=== PATIENT | male | born 1950 | race Caucasian/White ===

== ENCOUNTER 2017-02-12 05:20 | Emergency (ER) | payer SELFPAY ==
[2017-02-12 05:26] VITALS: BP 140/80; BMI 26.1
--- NOTE | 2017-02-12 05:45 | DR.GENAD ---
HPI - PCP Primary Care Physician: nfd - Complaint/Symptoms Chief Complaint Doctors Comments: Patient admits to nausea and back pain for a few days. Denies fever or vomiting. Back pain is chronic due to herniated disc Chief Complaint:: pt c/o nausea and back pain coughing sore throat - Source History Provided: Patient - Mode of Arrival Mode of Arrival: Ambulatory - Timing Onset of Chief Complaint: 02/11/17 PMH - PMH Past Medical History: Yes Past Medical History: Anxiety, Depression, Hypertension Past Surgical History: Yes Past Surgical History Comment: hemmoroids - Family History History of Family Medical Conditions: No - Social History Does any household member use tobacco: No Do you use any recreational Drugs:: No Lives With: Family Lives Where: Home - infectious screening In the last 2 months have you had wt loss of >10#?: NO Have you had fever, night sweats or hemotysis?: No Have you traveled outside the country in the last 6 months?: No Isolation: Standard ROS - Review of Systems Eyes: No Symptoms Reported ENTM: No Symptoms Reported Respiratoy: No Symptoms Reported Cardiovascular: No Symptoms Reported Gastrointestinal/Abdominal: No Symptoms Reported Genitourinary: No Symptoms Reported Neurological: No Symptoms Reported Musculoskeletal: Back Pain Integumentary: No Symptoms Reported Hematologic/Lymphatic: No Symptoms Reported Endocrine: No Symptoms Reported Psychiatric: No Symptoms Reported All Other Systems: Reviewed and Negative PE - Vital Signs Vitals: Temperature 98.3 F Pulse Rate 90 Respiratory Rate 18 Blood Pressure 140/80 O2 Sat by Pulse Oximetry 99 - General Limitations: No Limitations General Appearance: Alert, In No Apparent Distress - Head Head Exam: Normal Inspection, Atraumatic - Eyes Eye exam: Normal Appearance, PERRL, EOMI - ENT ENT Exam: Normal Exam External Ear Exam: Normal External Inspection TM/Canal Exam: Bilateral Normal Nose Exam: Normal Nose Exam Mouth Exam: Normal Inspection Throat Exam: Normal Inspection - Neck Neck Exam: Normal Inspection, Full ROM - Chest Chest Inspection: Normal Inspection - Respiratory Respiratory Exam: Normal Lung Sounds Bilat Respiratory Exam: Bilateral Clear to Auscultation - Cardiovascular Cardiovascular Exam: Regular Rate - Abdominal Exam Abdominal Exam: Normal Inspection Abdominal Tenderness: RUQ - Extremities Extremities Exam: Normal Inspection, Full ROM - Back Back Exam: Normal Inspection - Neurologic Neurological Exam: Alert, Oriented X3, CN II-XII Intact - Psychiatric Psychiatric Exam: Normal Affect, Normal Mood ROR - Labs Reviewed Laboratory Results Reviewed?: Yes Result Diagrams: 02/12/17 05:57 02/12/17 05:57 Laboratory: WBC 5.1 X10^3/uL (3.6-10.0) 02/12/17 05:57 RBC 4.83 X10^6/uL (4.7-6.0) 02/12/17 05:57 Hgb 14.0 g/dL (13.5-18.0) 02/12/17 05:57 Hct 40.9 % (42.0-54.0) L 02/12/17 05:57 MCV 84.7 fL (80.0-100.0) 02/12/17 05:57 MCH 28.9 pg (27.0-34.0) 02/12/17 05:57 MCHC 34.1 g/dL (33.0-35.0) 02/12/17 05:57 RDW 13.6 % (11.6-16.5) 02/12/17 05:57 Plt Count 219 X10^3/uL (150.0-450.0) 02/12/17 05:57 MPV 8.1 fL (7.4-11.0) 02/12/17 05:57 Neut % 65.4 % (42.0-75.0) 02/12/17 05:57 Lymph % 21.3 % (21.0-51.0) 02/12/17 05:57 [place] % 10.3 % (0.0-13.0) 02/12/17 05:57 Eos % 2.3 % (0.9-2.9) 02/12/17 05:57 Baso % 0.7 % (0.2-1.0) 02/12/17 05:57 Neut # 3.4 x10^3/uL (2.2-4.8) 02/12/17 05:57 Lymph # 1.1 X10^3/uL (1.3-2.9) L 02/12/17 05:57 [place] # 0.5 x10^3/uL (0.3-0.8) 02/12/17 05:57 Eos # 0.1 x10^3/uL (0.0-0.2) 02/12/17 05:57 Baso # 0.0 X10^3/uL (0.0-0.1) 02/12/17 05:57 Absolute Nucleated RBC 0.0 /100WBC 02/12/17 05:57 Sodium 144 mmol/L (136-145) 02/12/17 05:57 Corrected Sodium TNP 02/12/17 05:57 Potassium 4.0 mmol/L (3.5-5.1) 02/12/17 05:57 Chloride 108 mmol/L (98-107) H 02/12/17 05:57 Carbon Dioxide 27.2 mmol/L (21-32) 02/12/17 05:57 BUN 17 mg/dL (7-18) 02/12/17 05:57 Creatinine 1.09 mg/dL (0.70-1.30) 02/12/17 05:57 Est GFR (MDRD) Af Amer > 60 (>60) 02/12/17 05:57 Est GFR (MDRD) Non-Af > 60 (>60) 02/12/17 05:57 Glucose 105 mg/dL (65-99) H 02/12/17 05:57 Calcium 8.5 mg/dL (8.5-10.1) 02/12/17 05:57 Corrected Calcium TNP 02/12/17 05:57 Total Bilirubin 0.50 mg/dL (0.2-1.0) 02/12/17 05:57 AST 16 Units/L (15-37) 02/12/17 05:57 ALT 20 Units/L (12-78) 02/12/17 05:57 Alkaline Phosphatase 83 Units/L (46-116) 02/12/17 05:57 C-Reactive Protein 1.30 mg/L (0-3.0) 02/12/17 05:57 Total Protein 6.7 g/dL (6.4-8.2) 02/12/17 05:57 Albumin 3.5 g/dL (3.4-5.0) 02/12/17 05:57 Globulin 3.2 g/dL (2.5-4.5) 02/12/17 05:57 Albumin/Globulin Ratio 1.1 Ratio (1.1-2.1) 02/12/17 05:57 - XRAY XRAY Interpreted by: Radiologist (AAA: Chest: Normal chest; Abd:Abdomen in the supine and upright position demonstrate a nonobstructive bowel gas pattern with no radiographic evidence of free intraperitoneal air. There is gas and stool throughout the imaged colon.) - Diagnosis Discharge Problem: Nausea - Discharge Plan Condition: Stable - Follow ups/Referrals Follow ups/Referrals: NFD,None [Primary Care Provider] - 3 days - Instructions
[2017-02-12] MEDS ORDERED: TORADOL 30 MG VIAL IVP ONE (05:49)
[2017-02-12] MEDS ORDERED: TORADOL 30 MG VIAL IM ONE (05:50)
[2017-02-12] MEDS ORDERED: NS 1000 ML 1,000 ML ONE (05:51)
[2017-02-12] MEDS ORDERED: PHENERGAN INJ 25 MG IV ONE (05:53)
[2017-02-12] MEDS ORDERED: TORADOL 30 MG VIAL ONE (06:00)
[2017-02-12] MEDS ORDERED: NS 1000 ML 1,000 ML IV SCH (06:00)
[2017-02-12] MEDS ORDERED: NS 25 ML IV 25 ML IV ONE (06:00)
[2017-02-12] MEDS ORDERED: PHENERGAN INJ 25 MG ONE (06:00)
[2017-02-12 06:12] LABS: BASOPHILS % (AUTO) 0.7 % (0.2-1.0); EOSINOPHILS # (AUTO) 0.1 x10^3/uL (0.0-0.2); EOSINOPHILS % (AUTO) 2.3 % (0.9-2.9); HEMATOCRIT 40.9 % (42.0-54.0); LYMPHOCYTES # (AUTO) 1.1 X10^3/uL (1.3-2.9); LYMPHOCYTES % (AUTO) 21.3 % (21.0-51.0); MEAN CORPUSCULAR HEMOGLOBIN 28.9 pg (27.0-34.0); MEAN CORPUSCULAR HGB CONC 34.1 g/dL (33.0-35.0); MEAN CORPUSCULAR VOLUME 84.7 fL (80.0-100.0); MEAN PLATELET VOLUME 8.1 fL (7.4-11.0); MONOCYTES # (AUTO) 0.5 x10^3/uL (0.3-0.8); MONOCYTES % (AUTO) 10.3 % (0.0-13.0); NEUTROPHILS # (AUTO) 3.4 x10^3/uL (2.2-4.8); NEUTROPHILS % (AUTO) 65.4 % (42.0-75.0); PLATELET COUNT 219 X10^3/uL (150.0-450.0); RED BLOOD COUNT 4.83 X10^6/uL (4.7-6.0); RED CELL DISTRIBUTION WIDTH 13.6 % (11.6-16.5); WHITE BLOOD COUNT 5.1 X10^3/uL (3.6-10.0)
[2017-02-12 06:16] LABS: ALANINE AMINOTRANSFERASE 20 Units/L (12-78); ALBUMIN 3.5 g/dL (3.4-5.0); ALKALINE PHOSPHATASE 83 Units/L (46-116); ASPARTATE AMINO TRANSFERASE 16 Units/L (15-37); BLOOD UREA NITROGEN 17 mg/dL (7-18); CALCIUM 8.5 mg/dL (8.5-10.1); CARBON DIOXIDE 27.2 mmol/L (21-32); CHLORIDE 108 mmol/L (98-107); CREATININE 1.09 mg/dL (0.70-1.30); GLUCOSE 105 mg/dL (65-99); SODIUM 144 mmol/L (136-145); TOTAL PROTEIN 6.7 g/dL (6.4-8.2); eGFR BLACK RACES > 60 (>60); eGFR NON BLACK RACES > 60 (>60)
--- NOTE | 2017-02-12 06:54 | RAD ---
EXAM: Chest X-ray INDICATION: Nausea COMPARISION: Prior exam from September 02, 2012 TECHNIQUE: AP, single view FINDINGS: The lungs are clear in the lung volumes are within normal limits. No pleural effusion or pneumothora x. The cardiac silhouette and mediastinum are normal. The regional skeleton is intact. IMPRESSION: Normal Chest X-Ray Reported By:
[2017-02-12] MEDS ORDERED: CITROMA ONE (08:00)
[2017-02-12] MEDS ORDERED: CITROMA PO ONE (08:05)
== END 2017-02-12 08:05 | disposition home or self-care (01) ==
LOC: ER 05:20
DX: R11.0 Nausea (principal)
CPT/HCPCS: 36415; 74022; 80053; 85025; 86140; 96365; 96367; 96372; 96374; 96375; 99283; A4222; J1885; J2550

== ENCOUNTER 2024-01-23 08:26 | Inpatient (IN) ==
--- NOTE | 2024-01-23 08:38 | DR.GENAD ---
HPI Time Seen Time Seen by Provider: 01/23/24 08:37 Complaint/Symptoms Chief Complaint Doctors Comments: 73-year-old male presents for evaluation. Patient was seen and treated last week in the ER for bronchitis. Has had persistent cough, cough productive of some yellowish sputum. Patient having wo rsening shortness of breath over the past few days. Does have a history of COPD, ex-smoker for several decades. Has been wearing O2 at home, pulse ox low without it. Running low-grade fever, no chills. Denies chest pain, nausea, vomiting or bowel/bladder issues. Dyspnea worsens with exertion, improves with rest. No swelling of the legs. Does have a history of heart valve issue. Nurses notes reviewed Nurses Notes Review: Yes Source History Provided: Patient Mode of Arrival Mode of Arrival: Ambulatory PMH PMH Past Medical History: Anxiety, COPD, Depression and Hypertension Past Surgical History: Yes Surgical History: Other Family History Family Medical History: Diabetes Mellitus, Cancer and Hypertension Social History Does patient currently use any type of tobacco product: No Do you use any recreational Drugs:: No ROS Review of Systems Constitutional: Fever (Low-grade) Eyes: No Symptoms Reported ENTM: No Symptoms Reported Respiratoy: Productive Cough and Short of Breath Cardiovascular: No Symptoms Reported Gastrointestinal/Abdominal: No Symptoms Reported Genitourinary: No Symptoms Reported Neurological: No Symptoms Reported Musculoskeletal: No Symptoms Reported Integumentary: No Symptoms Reported Hematologic/Lymphatic: No Symptoms Reported Psychiatric: No Symptoms Reported All Other Systems: Reviewed and Negative PE Vital Signs Vitals: Vital Signs Temperature 98.2 F Pulse Rate 81 Pulse Rate 86 Pulse Rate 85 Pulse Rate 104 Respiratory Rate 20 Blood Pressure 128/74 O2 Sat by Pulse Oximetry 97 O2 Sat by Pulse Oximetry 98 O2 Sat by Pulse Oximetry 98 O2 Sat by Pulse Oximetry 97 General General Appearance: Alert and In No Apparent Distress Eyes Eye exam: PERRL and EOMI ENT ENT Exam: Normal Oropharynx and Mucous Membranes Moist Neck Neck Exam: Normal Inspection Chest Chest Inspection: Normal Inspection Respiratory Respiratory Exam: Other (+ bibasilar rales); negative Respiratory Distress Cardiovascular Cardiovascular Exam: Regular Rate, Normal Rhythm and Systolic Murmur (2/6 systolic ejection murmur left side chest) Abdominal Exam Abdominal Exam: Soft and Tenderness (Epigastric region) Extremities Extremities Exam: Normal Inspection; negative Edema Neurologic Neurological Exam: Alert, Oriented X3 and CN II-XII Intact; negative Motor Sensory Deficit Skin Skin Exam: Warm and Dry COURSE Treatment Treatment: 73-year-old male, history of COPD, with worsening shortness of breath. Workup initiated. 1015 -chest x-ray shows bilateral pneumonia to be present. Labs are overall acceptable. Initially given dose of IV Levaquin, but then realized patient just finished course of Levaquin.. Patient given IV Rocephin. Discussed with Dr. Wright, will admit for pneumonia, hypoxia. Will treat with IV Rocephin, DuoNeb treatments, IV steroids and O2 supplementation. ROR Labs Reviewed 01/23/24 09:10 01/23/24 09:10 Laboratory: WBC 8.9 X10^3/uL (3.6-10.0) 01/23/24 09:10 RBC 4.49 X10^6/uL (4.7-6.0) L 01/23/24 09:10 Hgb 13.2 g/dL (13.5-18.0) L 01/23/24 09:10 Hct 38.8 % (42.0-54.0) L 01/23/24 09:10 MCV 86.5 fL (80.0-100.0) 01/23/24 09:10 MCH 29.4 pg (27.0-34.0) 01/23/24 09:10 MCHC 34.0 g/dL (33.0-35.0) 01/23/24 09:10 RDW 13.9 % (11.6-16.5) 01/23/24 09:10 Plt Count 303 X10^3/uL (150.0-450.0) 01/23/24 09:10 MPV 7.5 fL (7.4-11.0) 01/23/24 09:10 Neut % (Auto) 78.2 % (42.0-75.0) H 01/23/24 09:10 Lymph % (Auto) 9.8 % (21.0-51.0) L 01/23/24 09:10 [place] % (Auto) 9.3 % (0.0-13.0) 01/23/24 09:10 Eos % (Auto) 2.0 % (0.9-2.9) 01/23/24 09:10 Baso % (Auto) 0.7 % (0.2-1.0) 01/23/24 09:10 Neut # (Auto) 7.0 x10^3/uL (2.2-4.8) H 01/23/24 09:10 Lymph # (Auto) 0.9 X10^3/uL (1.3-2.9) L 01/23/24 09:10 [place] # (Auto) 0.8 x10^3/uL (0.3-0.8) 01/23/24 09:10 Eos # (Auto) 0.2 x10^3/uL (0.0-0.2) 01/23/24 09:10 Baso # (Auto) 0.1 X10^3/uL (0.0-0.1) 01/23/24 09:10 Absolute Nucleated RBC 0.0 /100WBC 01/23/24 09:10 Sodium 140 mmol/L (136-145) 01/23/24 09:10 Corrected Sodium TNP 01/23/24 09:10 Potassium 4.4 mmol/L (3.5-5.1) 01/23/24 09:10 Chloride 105 mmol/L (98-107) 01/23/24 09:10 Carbon Dioxide 26.3 mmol/L (21-32) 01/23/24 09:10 BUN 15 mg/dL (7-18) 01/23/24 09:10 Creatinine 1.00 mg/dL (0.70-1.30) 01/23/24 09:10 Est GFR (MDRD) Af Amer > 60 (>60) 01/23/24 09:10 Est GFR (MDRD) Non-Af > 60 (>60) 01/23/24 09:10 Glucose 97 mg/dL (65-99) 01/23/24 09:10 Lactic Acid 1.0 mmol/L (0.4-2.0) 01/23/24 09:10 Calcium 8.5 mg/dL (8.5-10.1) 01/23/24 09:10 Corrected Calcium 9.5 mg/dL (8.5-10.1) 01/23/24 09:10 Total Bilirubin 0.70 mg/dL (0.2-1.0) 01/23/24 09:10 AST 16 Units/L (15-37) 01/23/24 09:10 ALT 15 Units/L (12-78) 01/23/24 09:10 Alkaline Phosphatase 102 Units/L (46-116) 01/23/24 09:10 B-Natriuretic Peptide 89.7 pg/mL (0-79) H 01/23/24 09:10 Total Protein 6.4 g/dL (6.4-8.2) 01/23/24 09:10 Albumin 2.7 g/dL (3.4-5.0) L 01/23/24 09:10 Globulin 3.7 g/dL (2.5-4.5) 01/23/24 09:10 Albumin/Globulin Ratio 0.7 Ratio (1.1-2.1) L 01/23/24 09:10 Lipase 39 Units/L (16-77) 01/23/24 09:10 EKG Rate: 82 [place]: Normal Rhythm: NSR ST: Nonsp Opioid Opioid Risk Tool Age (Pedro box if 16-45): No History of Preadolescent Sexual Abuse: No Total: 0 Total Score Risk Category: Low Risk Copyright: [place] predicting aberrant behaviors Discharge Plan Diagnosis Discharge Problem: Pneumonia, Hypoxia Discharge Plan Patient Disposition: 09 ADMITTED INPATIENT Condition: Stable Prescriptions: No Action albuterol sulfate 90 mcg/actuation HFA aerosol inhaler 2 puff inhalation Q6H MDD 8 PRN (Reason: shortness of breath or wheezing) 30 Days Qty: 6.7 0RF aspirin 81 mg tablet,delayed release (DR/EC) 81 mg PO QDAY MDD 1 30 Days Qty: 30 0RF famotidine 20 mg tablet 20 mg PO QDAY MDD 1 30 Days Qty: 30 0RF finasteride 5 mg tablet 5 mg PO QDAY MDD 1 30 Days Qty: 30 0RF ipratropium-albuterol 20-100 mcg/actuation mist 1 puff inhalation Q6H MDD 4 PRN (Reason: copd) 30 Days Qty: 4 0RF lisinopril 10 mg tablet 10 mg PO QDAY MDD 1 30 Days Qty: 30 0RF loratadine 10 mg tablet 10 mg PO QDAY MDD 1 30 Days Qty: 30 0RF magnesium citrate 125 mg capsule 125 mg PO QDAY MDD 1 30 Days Qty: 30 0RF metoprolol tartrate 25 mg tablet 25 mg PO QDAY MDD 1/4 tab daily 30 Days Qty: 30 0RF omeprazole 20 mg tablet,delayed release (DR/EC) 20 mg PO QDAY MDD 1 30 Days Qty: 30 0RF atorvastatin 40 mg tablet 40 mg PO QHS MDD 1/2 90 Days Qty: 90 0RF cyanocobalamin (vitamin B-12) 1,000 mcg tablet 500 mcg PO QDAY MDD 1 90 Days Qty: 45 0RF furosemide 20 mg tablet 20 mg PO QAM MDD 1 Qty: 90 0RF methocarbamol 500 mg tablet 500 mg PO TID MDD 3 90 Days Qty: 270 0RF cyanocobalamin (vitamin B-12) 1,000 mcg/mL solution 1,000 mcg IM QMONTH Qty: 1 0RF guaifenesin 1,200 mg tablet extended release 12hr 1,200 mg PO Q12H MDD 2 30 Days Qty: 60 0RF sodium chloride 0.9 % solution for nebulization 3 ml inhalation Q8H MDD 3 30 Days Qty: 90 2RF cholecalciferol (vitamin D3) 1,250 mcg (50,000 unit) capsule 1,250 mcg PO HS MDD 1 weekly Health Concerns: Post Hospitalization: new medications and changes needed to prevent readmission or further decline. Pt educated and given instructions on all concerns. Plan of Treatment: Continue with present treatment and follow up plan. Pt is to keep follow up appointment as instructed and take medications as ordered. Orders to Discharge Patient Discharge Orders: Transfer (Routine); Ordered 01/23/24 Ordered By: Karlos Pressley Follow ups/Referrals Follow ups/Referrals: SELINA GUZMÁN [Primary Care Provider] - 3 days
[2024-01-23] MEDS: NS 500 ML IV 500 ML IV ONE (09:02)
--- NOTE | 2024-01-23 09:08 | EKG ---
Test Reason : dyspnea Blood Pressure : */* mmHG Vent. Rate : 82 BPM Atrial Rate : 82 BPM P-R Int : 188 ms QRS Dur : 120 ms QT Int : 380 ms P-R-T Axes : 50 -12 22 degrees QTc Int : 443 ms Normal sinus rhythm Cannot rule out Anterior infarct , age undetermined Abnormal ECG When compared with ECG of 18-FEB-2023 03:21, premature ventricular complexes are no longer present Confirmed by Maksim Guerra ([id number]) on 01/23/2024 9:30:37 AM Referred By: Confirmed By: Maksim Guerra
[2024-01-23 09:32] LABS: BLOOD UREA NITROGEN 15 mg/dL (7-18); CALCIUM 8.5 mg/dL (8.5-10.1); CARBON DIOXIDE 26.3 mmol/L (21-32); CHLORIDE 105 mmol/L (98-107); GLUCOSE 97 mg/dL (65-99); POTASSIUM 4.4 mmol/L (3.5-5.1); SODIUM 140 mmol/L (136-145); eGFR NON BLACK RACES > 60 (>60)
[2024-01-23 09:35] LABS: BASOPHILS # (AUTO) 0.1 X10^3/uL (0.0-0.1); BASOPHILS % (AUTO) 0.7 % (0.2-1.0); EOSINOPHILS # (AUTO) 0.2 x10^3/uL (0.0-0.2); HEMATOCRIT 38.8 % (42.0-54.0); HEMOGLOBIN 13.2 g/dL (13.5-18.0); LYMPHOCYTES # (AUTO) 0.9 X10^3/uL (1.3-2.9); LYMPHOCYTES % (AUTO) 9.8 % (21.0-51.0); MEAN CORPUSCULAR HEMOGLOBIN 29.4 pg (27.0-34.0); MEAN CORPUSCULAR VOLUME 86.5 fL (80.0-100.0); MEAN PLATELET VOLUME 7.5 fL (7.4-11.0); MONOCYTES # (AUTO) 0.8 x10^3/uL (0.3-0.8); MONOCYTES % (AUTO) 9.3 % (0.0-13.0); NEUTROPHILS % (AUTO) 78.2 % (42.0-75.0); PLATELET COUNT 303 X10^3/uL (150.0-450.0); RED BLOOD COUNT 4.49 X10^6/uL (4.7-6.0); RED CELL DISTRIBUTION WIDTH 13.9 % (11.6-16.5); WHITE BLOOD COUNT 8.9 X10^3/uL (3.6-10.0)
[2024-01-23] MEDS: LEVAQUIN PREMIX IV 750 MG 750 MG/150 ML BAG IV SCH (09:39)
[2024-01-23 09:44] LABS: ALANINE AMINOTRANSFERASE 15 Units/L (12-78); ALBUMIN 2.7 g/dL (3.4-5.0); ALKALINE PHOSPHATASE 102 Units/L (46-116); ASPARTATE AMINO TRANSFERASE 16 Units/L (15-37); COR CA(FOR HYPOALB) 9.5 mg/dL (8.5-10.1); LIPASE 39 Units/L (16-77); TOTAL PROTEIN 6.4 g/dL (6.4-8.2)
--- NOTE | 2024-01-23 09:44 | RAD ---
EXAM:CHEST, 1 VIEWHISTORY:cough, dyspnea;COMPARISON:No relevant prior studies were available for comparison at the time of interpretation.TECHNIQUE:CHEST, 1 VIEWFINDINGS:Chest:Lines and tubes: NoneMediastinum: Cardiac and mediastinal shadow is within normal limits for size and contour.Pulmonary vessels: No pulmonary vascular congestion.Lung lowe: Patchy opacities are seen throughout both lungsPleura: No effusion. No pneumothorax.Bones and soft tissues: No acute osseous or soft tissue abnormality.IMPRESSION:1. Chronic interstitial pulmonary opacities with superimposed airspace opacities suggest pneumoniaTHIS IS AN ELECTRONICALLY VERIFIED FINAL REPORT01/23/2024 9:25 AM - Electronically signed by Carlos Brooks MD
[2024-01-23] MEDS: ROCEPHIN VIAL 1 GRAM IVP ONE (10:20)
[2024-01-23] MEDS ORDERED: CONSULT PHARMACY - POTASSIUM & MAGNESIUM XX SCH (11:20)
[2024-01-23] MEDS: ROCEPHIN VIAL 1 GRAM 1 G in NS 100 ML IV 100 ML IV SCH (12:29)
[2024-01-23] MEDS: SOLU-Medrol 125 MG VIAL IVP ONE (12:35)
[2024-01-23] MEDS: NS 1/2 1,000 ML IV 1,000 ML IV SCH (12:35)
[2024-01-23] MEDS: DUONEB 0.5 MG/3 MG (3 mL) NEB SCH (13:25)
[2024-01-23] MEDS: SOLU-Medrol 40 MG VIAL IVP SCH (14:00)
[2024-01-23] MEDS: ROBAXIN PO SCH (14:00)
[2024-01-23] MEDS: LOVENOX INJ 40 MG SYR SC SCH (18:44)
[2024-01-23] MEDS ORDERED: CHOLECALCIFEROL PO SCH (21:00)
[2024-01-23] MEDS ORDERED: [UNRECOGNIZED DRUG - OTHER] PO SCH (21:00)
[2024-01-23] MEDS: PULMICORT NEB TX 0.5 MG NEB SCH (21:03)
[2024-01-23] MEDS: MUCINEX EXPECTORANT PO SCH (21:26)
[2024-01-23] MEDS: LIPITOR TAB 40 MG PO SCH (21:26)
[2024-01-24 04:49] LABS: BASOPHILS # (AUTO) 0.1 X10^3/uL (0.0-0.1); BASOPHILS % (AUTO) 0.6 % (0.2-1.0); HEMATOCRIT 37.7 % (42.0-54.0); LYMPHOCYTES # (AUTO) 0.5 X10^3/uL (1.3-2.9); LYMPHOCYTES % (AUTO) 5.7 % (21.0-51.0); MEAN CORPUSCULAR HEMOGLOBIN 29.7 pg (27.0-34.0); MEAN CORPUSCULAR HGB CONC 34.5 g/dL (33.0-35.0); MEAN PLATELET VOLUME 7.8 fL (7.4-11.0); MONOCYTES # (AUTO) 0.1 x10^3/uL (0.3-0.8); MONOCYTES % (AUTO) 1.5 % (0.0-13.0); NEUTROPHILS # (AUTO) 7.9 x10^3/uL (2.2-4.8); NEUTROPHILS % (AUTO) 92.2 % (42.0-75.0); PLATELET COUNT 301 X10^3/uL (150.0-450.0); RED BLOOD COUNT 4.38 X10^6/uL (4.7-6.0); RED CELL DISTRIBUTION WIDTH 14.5 % (11.6-16.5); WHITE BLOOD COUNT 8.6 X10^3/uL (3.6-10.0)
[2024-01-24 05:03] LABS: ALANINE AMINOTRANSFERASE 16 Units/L (12-78); ALBUMIN 2.6 g/dL (3.4-5.0); ALKALINE PHOSPHATASE 95 Units/L (46-116); ASPARTATE AMINO TRANSFERASE 18 Units/L (15-37); BLOOD UREA NITROGEN 17 mg/dL (7-18); CALCIUM 8.5 mg/dL (8.5-10.1); CARBON DIOXIDE 25.6 mmol/L (21-32); CHLORIDE 105 mmol/L (98-107); COR CA(FOR HYPOALB) 9.6 mg/dL (8.5-10.1); COR NA(FOR HYPERGLY) 142 mmol/L (136-145); CREATININE 0.86 mg/dL (0.70-1.30); GLUCOSE 144 mg/dL (65-99); POTASSIUM 4.7 mmol/L (3.5-5.1); SODIUM 141 mmol/L (136-145); TOTAL PROTEIN 6.2 g/dL (6.4-8.2); eGFR NON BLACK RACES > 60 (>60)
[2024-01-24 05:23] LABS: PLATELET MORPHOLOGY COMMENT NORMAL (NORMAL)
[2024-01-24] MEDS: NS 500 ML IV 500 ML IV ONE (07:37)
[2024-01-24] MEDS: LEVAQUIN PREMIX IV 750 MG 750 MG/150 ML BAG IV ONE (07:37)
[2024-01-24] MEDS: NS 100 ML IV 100 ML ONE (07:37)
[2024-01-24] MEDS: SOLU-Medrol 125 MG VIAL ONE (07:38)
[2024-01-24] MEDS: NS 1/2 1,000 ML IV 1,000 ML IV ONE ×2 (07:38→07:39)
[2024-01-24] MEDS: ROCEPHIN VIAL 1 GRAM ONE (07:38)
[2024-01-24] MEDS ORDERED: MAGNESIUM CITRATE 125 MG PO SCH (09:00)
[2024-01-24] MEDS: PEPCID TAB 20 MG PO SCH (09:28)
[2024-01-24] MEDS: PROSCAR PO SCH (09:29)
[2024-01-24] MEDS: ZESTRIL TAB 10 MG PO SCH (09:29)
[2024-01-24] MEDS: CLARITIN PO SCH (09:29)
[2024-01-24] MEDS: ASPIRIN EC 81 MG PO SCH (09:30)
[2024-01-24] MEDS: LASIX PO SCH (09:30)
[2024-01-24] MEDS: LOPRESSOR TAB 25 MG PO SCH (09:30)
--- NOTE | 2024-01-24 09:35 | PCM.PROG ---
Progress Note Progress Note for Day of Date of Exam: 01/24/24 Subjective Subjective: Patient seen at bedside, no acute events overnight. He is currently admitted for b/l pneumonia and COPD exacerbation. He failed outpatient treatment with Levaquin and steroids. He is currently on 3L NC. He only uses O2 prn at home but lately has been using it more due to dyspnea with exertion. He is currently on Rocephin and Levaquin along with steroids. Labs/imaging reviewed -WBC 8.6 Hgb 13 -CXR: b/l patchy opacities -Recent CT-chest: concerning for pulmonary fibrosis Plan: Will switch to Fortaz and Azithromycin. Continue steroids, bronchodilators and IS. Continue gentle hydration. Wean O2 as tolerated. Resume home medications. Monitor AM labs/imaging. Past Medical Family Social History Allergies: Allergies lidocaine Allergy (Unknown, Verified 08/10/23 09:44) Reason: Drug allergy Penicillins Allergy (Unknown, Verified 08/10/23 09:44) Reason: Drug allergy codeine Allergy (Verified 08/10/23 09:44) procaine [From Novocain] Allergy (Verified 08/10/23 09:44) Vital Signs and I&O's Vital Signs: Vital Signs Temperature 98.5 F Temperature 97.8 F Pulse Rate [Left Radial] 106 Pulse Rate [Left Radial] 88 Pulse Rate 114 Respiratory Rate 20 Respiratory Rate 16 Blood Pressure [Right Arm] 136/77 Blood Pressure [Left Arm] 127/75 O2 Sat by Pulse Oximetry 90 O2 Sat by Pulse Oximetry 95 O2 Sat by Pulse Oximetry 95 Intake and Output: Intake & Output 01/21/24 01/22/24 01/23/24 01/24/24 23:59 23:59 23:59 23:59 Intake Total 1816 / 1816 482 / 482 Output Total 980 / 980 0 / 0 Balance 836 / 836 482 / 482 Physical Exam Oriented: Normal Eyes: Normal Nose: Normal Throat: Normal Respiratory: Wheezes and Rhonchi Cardiovascular: Normal, Tachycardia, Diastolic and Murmur Auscultation: Bowel Sounds: Normal Palpation: Normal Tenderness: Normal Skin: Decreased [place] Musculoskeletal: Normal Psychiatric: Normal Mood Description: Calm Affect: Normal Speech Pattern: Clear and Appropriate Laboratory and Diagnostics 01/24/24 04:18 01/24/24 04:18 Labs: Laboratory WBC 8.6 X10^3/uL (3.6-10.0) 01/24/24 04:18 RBC 4.38 X10^6/uL (4.7-6.0) L 01/24/24 04:18 Hgb 13.0 g/dL (13.5-18.0) L 01/24/24 04:18 Hct 37.7 % (42.0-54.0) L 01/24/24 04:18 MCV 86.0 fL (80.0-100.0) 01/24/24 04:18 MCH 29.7 pg (27.0-34.0) 01/24/24 04:18 MCHC 34.5 g/dL (33.0-35.0) 01/24/24 04:18 RDW 14.5 % (11.6-16.5) 01/24/24 04:18 Plt Count 301 X10^3/uL (150.0-450.0) 01/24/24 04:18 Plt Count Comment Adequate (ADEQUATE) 01/24/24 04:18 MPV 7.8 fL (7.4-11.0) 01/24/24 04:18 Neut % (Auto) 92.2 % (42.0-75.0) H 01/24/24 04:18 Lymph % (Auto) 5.7 % (21.0-51.0) L 01/24/24 04:18 [place] % (Auto) 1.5 % (0.0-13.0) 01/24/24 04:18 Eos % (Auto) 0.0 % (0.9-2.9) L 01/24/24 04:18 Baso % (Auto) 0.6 % (0.2-1.0) 01/24/24 04:18 Neut # (Auto) 7.9 x10^3/uL (2.2-4.8) H 01/24/24 04:18 Lymph # (Auto) 0.5 X10^3/uL (1.3-2.9) L 01/24/24 04:18 [place] # (Auto) 0.1 x10^3/uL (0.3-0.8) L 01/24/24 04:18 Eos # (Auto) 0.0 x10^3/uL (0.0-0.2) 01/24/24 04:18 Baso # (Auto) 0.1 X10^3/uL (0.0-0.1) 01/24/24 04:18 Absolute Nucleated RBC 0.0 /100WBC 01/24/24 04:18 Total Counted 100 01/24/24 04:18 Neutrophils % (Manual) 90 % (39-76) H 01/24/24 04:18 Lymphocytes % (Manual) 7 % (13-43) L 01/24/24 04:18 Monocytes % (Manual) 3 % (4-9) L 01/24/24 04:18 Plt Morphology Comment Normal (NORMAL) 01/24/24 04:18 RBC Morphology Normal (NORMAL) 01/24/24 04:18 Sodium 141 mmol/L (136-145) 01/24/24 04:18 Corrected Sodium 142 mmol/L (136-145) 01/24/24 04:18 Potassium 4.7 mmol/L (3.5-5.1) 01/24/24 04:18 Chloride 105 mmol/L (98-107) 01/24/24 04:18 Carbon Dioxide 25.6 mmol/L (21-32) 01/24/24 04:18 BUN 17 mg/dL (7-18) 01/24/24 04:18 Creatinine 0.86 mg/dL (0.70-1.30) 01/24/24 04:18 Est GFR (MDRD) Af Amer > 60 (>60) 01/24/24 04:18 Est GFR (MDRD) Non-Af > 60 (>60) 01/24/24 04:18 Glucose 144 mg/dL (65-99) H 01/24/24 04:18 POC Glucose (mg/dL) 167 mg/dL (65-99) H 01/23/24 20:28 Lactic Acid 1.0 mmol/L (0.4-2.0) 01/23/24 09:10 Calcium 8.5 mg/dL (8.5-10.1) 01/24/24 04:18 Corrected Calcium 9.6 mg/dL (8.5-10.1) 01/24/24 04:18 Magnesium 2.4 mg/dL (2.0-2.9) 01/23/24 09:10 Total Bilirubin 0.50 mg/dL (0.2-1.0) 01/24/24 04:18 AST 18 Units/L (15-37) 01/24/24 04:18 ALT 16 Units/L (12-78) 01/24/24 04:18 Alkaline Phosphatase 95 Units/L (46-116) 01/24/24 04:18 B-Natriuretic Peptide 89.7 pg/mL (0-79) H 01/23/24 09:10 Total Protein 6.2 g/dL (6.4-8.2) L 01/24/24 04:18 Albumin 2.6 g/dL (3.4-5.0) L 01/24/24 04:18 Globulin 3.6 g/dL (2.5-4.5) 01/24/24 04:18 Albumin/Globulin Ratio 0.7 Ratio (1.1-2.1) L 01/24/24 04:18 Lipase 39 Units/L (16-77) 01/23/24 09:10 SARS-CoV-2 (PCR) Negative (NEGATIVE) 01/23/24 09:45 Influenza Type A (PCR) Negative (NEGATIVE) 01/23/24 09:45 Influenza Type B (PCR) Negative (NEGATIVE) 01/23/24 09:45 RSV (PCR) Negative (NEGATIVE) 01/23/24 09:45 Plan (1) Pneumonia: Status: Acute Qualifiers: Pneumonia type: due to unspecified organism Laterality: bilateral Lung location: unspecified part of lung Qualified Code(s): J18.9 - Pneumonia, unspecified organism (2) Hypoxia: Status: Acute (3) Chronic obstructive pulmonary disease with acute exacerbation: Status: Acute (4) Pulmonary fibrosis: Status: Acute (5) History of macrocytic anemia: Status: Chronic (6) HLD (hyperlipidemia): Status: None Qualifiers: Hyperlipidemia type: mixed hyperlipidemia Qualified Code(s): E78.2 - Mixed hyperlipidemia
[2024-01-24] MEDS: VITAMIN B-12 PO SCH (09:39)
[2024-01-24] MEDS: PriLOSEC PO SCH (09:39)
[2024-01-24] MEDS: FORTAZ or TAZICEF VIAL INJ 1 G in NS 100 ML IV 100 ML IV SCH (10:46)
[2024-01-24] MEDS: ZITHROMAX INJ 500 MG VIAL 500 MG in NS 250 ML IV 250 ML IV SCH (12:15)
[2024-01-24] MEDS: ZITHROMAX INJ 500 MG VIAL IV ONE (12:16)
[2024-01-24] MEDS: ROBITUSSIN DM PO PRN (12:47)
--- NOTE | 2024-01-24 12:57 | DR.H&P ---
H&P History & Physical for Day of: H&P Date: 01/23/24 Chief Complaint Chief Complaint: cough shortness of breath Allergies Allergies Allergy/AdvReac Type Severity Reaction Status Date / Time lidocaine Allergy Unknown Verified 08/10/23 09:44 Penicillins Allergy Unknown Verified 08/10/23 09:44 codeine Allergy Verified 08/10/23 09:44 procaine [From Novocain] Allergy Verified 08/10/23 09:44 History of Present Illness History of Present Illness: Patient is a 73-year-old male past medical history of COPD, Hypertension, presenting with worsening shortness of breath for the past week. He reports having chills, cough, shortness of breath. Symptoms did not improve after outpatient antibiotics so he went to the ER. Labs/imaging: WBC 8.9, hemoglobin 13.2, platelets 303, sodium 140, potassium 4.4, creatinine 1.0, glucose 97, AIT pending, COVID/flu/RSV negative, chest x-ray was obtained that revealed: Chronic interstitial pulmonary opacities with superimposed airspace opacities suggest pneumonia. Patient is admitted for bilateral pneumonia. He is on IV fluids half-normal saline at 75 mL/h, home meds have been restarted, IV Solu-Medrol 40 mg every 8 hours, IV antibiotics Rocephin and Levaquin. Will be changed to Fortaz and azithromycin. He is requiring 3 L nasal cannula supplemental oxygen. Wean/titrate as tolerated. Respiratory therapy. Scheduled bronchodilators. Continue with current treatment plan. Continue to closely monitor and follow-up labs/imaging in the morning. Past Medical History Past Medical History: Anxiety, COPD, Depression and Hypertension Past Surgical History Surgical History: Other Family History Family Medical History: Diabetes Mellitus, Cancer and Hypertension Social History Does patient currently use any type of tobacco product: No Have you used tobacco products in the last 12 months: No Type of Tobacco Use: None Does any household member use tobacco: No Alcohol Use: None Drug Use: None Medications Home Medications: Home Medications Medication Instructions Recorded Confirmed Type cholecalciferol (vitamin D3) 1,250 1,250 mcg PO HS def 01/23/24 01/23/24 History mcg (50,000 unit) capsule Labs 01/24/24 04:18 01/24/24 04:18 Labs: Laboratory WBC 8.6 X10^3/uL (3.6-10.0) 01/24/24 04:18 RBC 4.38 X10^6/uL (4.7-6.0) L 01/24/24 04:18 Hgb 13.0 g/dL (13.5-18.0) L 01/24/24 04:18 Hct 37.7 % (42.0-54.0) L 01/24/24 04:18 MCV 86.0 fL (80.0-100.0) 01/24/24 04:18 MCH 29.7 pg (27.0-34.0) 01/24/24 04:18 MCHC 34.5 g/dL (33.0-35.0) 01/24/24 04:18 RDW 14.5 % (11.6-16.5) 01/24/24 04:18 Plt Count 301 X10^3/uL (150.0-450.0) 01/24/24 04:18 Plt Count Comment Adequate (ADEQUATE) 01/24/24 04:18 MPV 7.8 fL (7.4-11.0) 01/24/24 04:18 Neut % (Auto) 92.2 % (42.0-75.0) H 01/24/24 04:18 Lymph % (Auto) 5.7 % (21.0-51.0) L 01/24/24 04:18 [place] % (Auto) 1.5 % (0.0-13.0) 01/24/24 04:18 Eos % (Auto) 0.0 % (0.9-2.9) L 01/24/24 04:18 Baso % (Auto) 0.6 % (0.2-1.0) 01/24/24 04:18 Neut # (Auto) 7.9 x10^3/uL (2.2-4.8) H 01/24/24 04:18 Lymph # (Auto) 0.5 X10^3/uL (1.3-2.9) L 01/24/24 04:18 [place] # (Auto) 0.1 x10^3/uL (0.3-0.8) L 01/24/24 04:18 Eos # (Auto) 0.0 x10^3/uL (0.0-0.2) 01/24/24 04:18 Baso # (Auto) 0.1 X10^3/uL (0.0-0.1) 01/24/24 04:18 Absolute Nucleated RBC 0.0 /100WBC 01/24/24 04:18 Total Counted 100 01/24/24 04:18 Neutrophils % (Manual) 90 % (39-76) H 01/24/24 04:18 Lymphocytes % (Manual) 7 % (13-43) L 01/24/24 04:18 Monocytes % (Manual) 3 % (4-9) L 01/24/24 04:18 Plt Morphology Comment Normal (NORMAL) 01/24/24 04:18 RBC Morphology Normal (NORMAL) 01/24/24 04:18 Sodium 141 mmol/L (136-145) 01/24/24 04:18 Corrected Sodium 142 mmol/L (136-145) 01/24/24 04:18 Potassium 4.7 mmol/L (3.5-5.1) 01/24/24 04:18 Chloride 105 mmol/L (98-107) 01/24/24 04:18 Carbon Dioxide 25.6 mmol/L (21-32) 01/24/24 04:18 BUN 17 mg/dL (7-18) 01/24/24 04:18 Creatinine 0.86 mg/dL (0.70-1.30) 01/24/24 04:18 Est GFR (MDRD) Af Amer > 60 (>60) 01/24/24 04:18 Est GFR (MDRD) Non-Af > 60 (>60) 01/24/24 04:18 Glucose 144 mg/dL (65-99) H 01/24/24 04:18 POC Glucose (mg/dL) 167 mg/dL (65-99) H 01/23/24 20:28 Lactic Acid 1.0 mmol/L (0.4-2.0) 01/23/24 09:10 Calcium 8.5 mg/dL (8.5-10.1) 01/24/24 04:18 Corrected Calcium 9.6 mg/dL (8.5-10.1) 01/24/24 04:18 Magnesium 2.4 mg/dL (2.0-2.9) 01/23/24 09:10 Total Bilirubin 0.50 mg/dL (0.2-1.0) 01/24/24 04:18 AST 18 Units/L (15-37) 01/24/24 04:18 ALT 16 Units/L (12-78) 01/24/24 04:18 Alkaline Phosphatase 95 Units/L (46-116) 01/24/24 04:18 B-Natriuretic Peptide 89.7 pg/mL (0-79) H 01/23/24 09:10 Total Protein 6.2 g/dL (6.4-8.2) L 01/24/24 04:18 Albumin 2.6 g/dL (3.4-5.0) L 01/24/24 04:18 Globulin 3.6 g/dL (2.5-4.5) 01/24/24 04:18 Albumin/Globulin Ratio 0.7 Ratio (1.1-2.1) L 01/24/24 04:18 Lipase 39 Units/L (16-77) 01/23/24 09:10 SARS-CoV-2 (PCR) Negative (NEGATIVE) 01/23/24 09:45 Influenza Type A (PCR) Negative (NEGATIVE) 01/23/24 09:45 Influenza Type B (PCR) Negative (NEGATIVE) 01/23/24 09:45 RSV (PCR) Negative (NEGATIVE) 01/23/24 09:45 Review of Systems Constitutional: Chills and Weakness Eyes: No Symptoms Reported ENT: No Symptoms Reported Respiratory: Cough and Shortness of Breath Cardiovascular: No Symptoms Reported Gastrointestinal: No Symptoms Reported Genitourinary: No Symptoms Reported Musculoskeletal: No Symptoms Reported Skin: No Symptoms Reported Neurological: No Symptoms Reported Physical Exam Vital Signs: Vital Signs Temperature 98.5 F Temperature 97.8 F Pulse Rate [Left Radial] 106 Pulse Rate [Left Radial] 88 Pulse Rate 114 Respiratory Rate 20 Respiratory Rate 16 Blood Pressure [Right Arm] 136/77 Blood Pressure [Left Arm] 127/75 O2 Sat by Pulse Oximetry 90 O2 Sat by Pulse Oximetry 95 O2 Sat by Pulse Oximetry 95 Oriented: Normal Eyes: Normal Ear: Normal Nose: Normal Throat: Normal Respiratory: Diminished Throughout and Rhonchi Throughout Cardiovascular: Normal : Normal Auscultation: Bowel Sounds: Normal Palpation: Normal Tenderness: Normal Skin: Normal Musculoskeletal: Normal Psychiatric: Normal Mood Description: Calm and Appropriate Affect: Normal Speech Pattern: Clear and Appropriate Assessment/Plan (1) Pneumonia: Qualifiers: Laterality: bilateral Lung location: unspecified part of lung Pneumonia type: due to unspecified organism Qualified Code(s): J18.9 - Pneumonia, unspecified organism Status: Acute (2) Hypoxia: Status: Acute (3) Chronic obstructive pulmonary disease with acute exacerbation: Status: Acute (4) Pulmonary fibrosis: Status: Acute (5) History of macrocytic anemia: Status: Chronic (6) HLD (hyperlipidemia): Qualifiers: Hyperlipidemia type: mixed hyperlipidemia Qualified Code(s): E78.2 - Mixed hyperlipidemia Status: None Review H&P Reviewed: Yes Patient was examined?: Yes
--- NOTE | 2024-01-24 15:21 | RAD ---
EXAM:CHEST, 1 VIEWHISTORY:f/u;COMPARISON:Prior study or studies were utilized for comparison during interpretation with the most relevant dated 01/23/2024TECHNIQUE:CHEST, 1 VIEWFINDINGS:Chest:Lines and tubes: NoneMediastinum: Cardiomegaly.Pulmonary vessels: There is pulmonary vascular congestion.Lung lowe: Patchy opacities are seen throughout the lungsPleura: No effusion. No pneumothorax.Bones and soft tissues: No acute osseous or soft tissue abnormality.IMPRESSION:1. Worsening airspace opacities are seen bilaterallyTHIS IS AN ELECTRONICALLY VERIFIED FINAL REPORT01/24/2024 3:18 PM - Electronically signed by Carlos Brooks MD
[2024-01-24] MEDS: LASIX IVP ONE (16:54)
[2024-01-24 20:57] VITALS: BMI 26.7
[2024-01-24] MEDS: TESSALON PERLES PO PRN (21:07)
[2024-01-25 06:15] LABS: BASOPHILS % (AUTO) 0.3 % (0.2-1.0); HEMOGLOBIN 12.4 g/dL (13.5-18.0); LYMPHOCYTES # (AUTO) 0.5 X10^3/uL (1.3-2.9); LYMPHOCYTES % (AUTO) 3.7 % (21.0-51.0); MEAN CORPUSCULAR HEMOGLOBIN 29.7 pg (27.0-34.0); MEAN CORPUSCULAR HGB CONC 34.4 g/dL (33.0-35.0); MEAN CORPUSCULAR VOLUME 86.4 fL (80.0-100.0); MEAN PLATELET VOLUME 7.6 fL (7.4-11.0); MONOCYTES # (AUTO) 0.6 x10^3/uL (0.3-0.8); MONOCYTES % (AUTO) 4.1 % (0.0-13.0); NEUTROPHILS # (AUTO) 13.3 x10^3/uL (2.2-4.8); NEUTROPHILS % (AUTO) 91.9 % (42.0-75.0); PLATELET COUNT 308 X10^3/uL (150.0-450.0); RED BLOOD COUNT 4.17 X10^6/uL (4.7-6.0); RED CELL DISTRIBUTION WIDTH 14.5 % (11.6-16.5); WHITE BLOOD COUNT 14.5 X10^3/uL (3.6-10.0)
[2024-01-25 06:23] LABS: ALANINE AMINOTRANSFERASE 17 Units/L (12-78); ALBUMIN 2.6 g/dL (3.4-5.0); ALKALINE PHOSPHATASE 81 Units/L (46-116); ASPARTATE AMINO TRANSFERASE 32 Units/L (15-37); BLOOD UREA NITROGEN 28 mg/dL (7-18); CALCIUM 8.4 mg/dL (8.5-10.1); CARBON DIOXIDE 26.5 mmol/L (21-32); CHLORIDE 107 mmol/L (98-107); COR CA(FOR HYPOALB) 9.5 mg/dL (8.5-10.1); COR NA(FOR HYPERGLY) 143 mmol/L (136-145); GLUCOSE 131 mg/dL (65-99); POTASSIUM 4.5 mmol/L (3.5-5.1); SODIUM 142 mmol/L (136-145); TOTAL PROTEIN 5.9 g/dL (6.4-8.2); eGFR NON BLACK RACES > 60 (>60)
[2024-01-25 06:29] LABS: BAND NEUTROPHILS % 1 % (0-10)
[2024-01-25 06:30] LABS: PLATELET MORPHOLOGY COMMENT NORMAL (NORMAL)
[2024-01-25] MEDS: LOPRESSOR TAB 25 MG PO SCH (08:16)
--- NOTE | 2024-01-25 10:35 | PCM.PROG ---
Progress Note Progress Note for Day of Date of Exam: 01/25/24 Subjective Subjective: Patient is a 73 year old male admitted for b/l pneumonia and COPD exacerbation. He failed outpatient treatment with Levaquin and steroids. He is currently on 3L NC. He only uses O2 prn at home but lately has been using it more due to dyspnea with exertion. His antibiotics was changed yesterday to Fortaz and Azithromycin. He reports some improvement in his breathing today. No acute events overnight. Labs/imaging reviewed -WBC 14.5, Hgb 12.3, Plt 308, Na 143, K 4.5, Creatinine 1.0, Glucose 131, AIT negative -CXR: b/l patchy opacities -Recent CT-chest: concerning for pulmonary fibrosis Plan: Continue steroids, bronchodilators and IS. Continue gentle hydration. Wean O2 as tolerated. Resume home medications. Monitor AM labs/imaging. Past Medical Family Social History Allergies: Allergies lidocaine Allergy (Unknown, Verified 08/10/23 09:44) Reason: Drug allergy Penicillins Allergy (Unknown, Verified 08/10/23 09:44) Reason: Drug allergy codeine Allergy (Verified 08/10/23 09:44) procaine [From Novocain] Allergy (Verified 08/10/23 09:44) Review of Systems ROS changes noted: see HPI Vital Signs and I&O's Vital Signs: Vital Signs Temperature 98.2 F Temperature 98.2 F Pulse Rate [Left Radial] 78 Pulse Rate [Left Radial] 101 Pulse Rate 88 Respiratory Rate 18 Respiratory Rate 21 Blood Pressure [Right Arm] 125/67 Blood Pressure [Right Arm] 144/73 O2 Sat by Pulse Oximetry 98 O2 Sat by Pulse Oximetry 96 O2 Sat by Pulse Oximetry 95 Intake and Output: Intake & Output 01/22/24 01/23/24 01/24/24 01/25/24 23:59 23:59 23:59 23:59 Intake Total 1816 / 1816 2670 / 2670 320 / 320 Output Total 980 / 980 Balance 836 / 836 2666 / 2666 320 / 320 Physical Exam Oriented: Normal Eyes: Normal Ear: Normal Nose: Normal Throat: Normal Respiratory: Rhonchi Cardiovascular: Normal : Normal Auscultation: Bowel Sounds: Normal Tenderness: Normal Skin: Normal Musculoskeletal: Normal Psychiatric: Normal Mood Description: Calm and Appropriate Affect: Normal Speech Pattern: Clear and Appropriate Laboratory and Diagnostics 01/25/24 05:54 01/25/24 05:54 Labs: 01/23/24 09:10 Blood Blood Culture - Preliminary 01/23/24 08:55 Blood Blood Culture - Preliminary Laboratory WBC 14.5 X10^3/uL (3.6-10.0) H 01/25/24 05:54 RBC 4.17 X10^6/uL (4.7-6.0) L 01/25/24 05:54 Hgb 12.4 g/dL (13.5-18.0) L 01/25/24 05:54 Hct 36.0 % (42.0-54.0) L 01/25/24 05:54 MCV 86.4 fL (80.0-100.0) 01/25/24 05:54 MCH 29.7 pg (27.0-34.0) 01/25/24 05:54 MCHC 34.4 g/dL (33.0-35.0) 01/25/24 05:54 RDW 14.5 % (11.6-16.5) 01/25/24 05:54 Plt Count 308 X10^3/uL (150.0-450.0) 01/25/24 05:54 Plt Count Comment Adequate (ADEQUATE) 01/25/24 05:54 MPV 7.6 fL (7.4-11.0) 01/25/24 05:54 Neut % (Auto) 91.9 % (42.0-75.0) H 01/25/24 05:54 Lymph % (Auto) 3.7 % (21.0-51.0) L 01/25/24 05:54 [place] % (Auto) 4.1 % (0.0-13.0) 01/25/24 05:54 Eos % (Auto) 0.0 % (0.9-2.9) L 01/25/24 05:54 Baso % (Auto) 0.3 % (0.2-1.0) 01/25/24 05:54 Neut # (Auto) 13.3 x10^3/uL (2.2-4.8) H 01/25/24 05:54 Lymph # (Auto) 0.5 X10^3/uL (1.3-2.9) L 01/25/24 05:54 [place] # (Auto) 0.6 x10^3/uL (0.3-0.8) 01/25/24 05:54 Eos # (Auto) 0.0 x10^3/uL (0.0-0.2) 01/25/24 05:54 Baso # (Auto) 0.0 X10^3/uL (0.0-0.1) 01/25/24 05:54 Absolute Nucleated RBC 0.0 /100WBC 01/25/24 05:54 Total Counted 100 01/25/24 05:54 Neutrophils % (Manual) 87 % (39-76) H 01/25/24 05:54 Band Neutrophils % 1 % (0-10) 01/25/24 05:54 Lymphocytes % (Manual) 9 % (13-43) L 01/25/24 05:54 Monocytes % (Manual) 3 % (4-9) L 01/25/24 05:54 Plt Morphology Comment Normal (NORMAL) 01/25/24 05:54 RBC Morphology Normal (NORMAL) 01/25/24 05:54 Sodium 142 mmol/L (136-145) 01/25/24 05:54 Corrected Sodium 143 mmol/L (136-145) 01/25/24 05:54 Potassium 4.5 mmol/L (3.5-5.1) 01/25/24 05:54 Chloride 107 mmol/L (98-107) 01/25/24 05:54 Carbon Dioxide 26.5 mmol/L (21-32) 01/25/24 05:54 BUN 28 mg/dL (7-18) H 01/25/24 05:54 Creatinine 1.00 mg/dL (0.70-1.30) 01/25/24 05:54 Est GFR (MDRD) Af Amer > 60 (>60) 01/25/24 05:54 Est GFR (MDRD) Non-Af > 60 (>60) 01/25/24 05:54 Glucose 131 mg/dL (65-99) H 01/25/24 05:54 POC Glucose (mg/dL) 167 mg/dL (65-99) H 01/23/24 20:28 Lactic Acid 1.0 mmol/L (0.4-2.0) 01/23/24 09:10 Calcium 8.4 mg/dL (8.5-10.1) L 01/25/24 05:54 Corrected Calcium 9.5 mg/dL (8.5-10.1) 01/25/24 05:54 Magnesium 2.4 mg/dL (2.0-2.9) 01/23/24 09:10 Total Bilirubin 0.40 mg/dL (0.2-1.0) 01/25/24 05:54 AST 32 Units/L (15-37) 01/25/24 05:54 ALT 17 Units/L (12-78) 01/25/24 05:54 Alkaline Phosphatase 81 Units/L (46-116) 01/25/24 05:54 B-Natriuretic Peptide 89.7 pg/mL (0-79) H 01/23/24 09:10 Total Protein 5.9 g/dL (6.4-8.2) L 01/25/24 05:54 Albumin 2.6 g/dL (3.4-5.0) L 01/25/24 05:54 Globulin 3.3 g/dL (2.5-4.5) 01/25/24 05:54 Albumin/Globulin Ratio 0.8 Ratio (1.1-2.1) L 01/25/24 05:54 Lipase 39 Units/L (16-77) 01/23/24 09:10 SARS-CoV-2 (PCR) Negative (NEGATIVE) 01/23/24 09:45 Influenza Type A (PCR) Negative (NEGATIVE) 01/23/24 09:45 Influenza Type B (PCR) Negative (NEGATIVE) 01/23/24 09:45 RSV (PCR) Negative (NEGATIVE) 01/23/24 09:45 Resp Viral Panel (PCR) See scanned report 01/23/24 11:27 Plan (1) Pneumonia: Status: Acute Qualifiers: Laterality: bilateral Lung location: unspecified part of lung Pneumonia type: due to unspecified organism Qualified Code(s): J18.9 - Pneumonia, unspecified organism (2) Hypoxia: Status: Acute (3) Chronic obstructive pulmonary disease with acute exacerbation: Status: Acute (4) Pulmonary fibrosis: Status: Acute (5) History of macrocytic anemia: Status: Chronic (6) HLD (hyperlipidemia): Status: None Qualifiers: Hyperlipidemia type: mixed hyperlipidemia Qualified Code(s): E78.2 - Mixed hyperlipidemia
--- NOTE | 2024-01-25 14:12 | RAD ---
EXAM: CHEST, 1 VIEW HISTORY: OVIDIO PNEUMONIA; COMPARISON: Prior study or studies were utilized for comparison during interpretation with the most relevant stephanie ed yesterday TECHNIQUE: CHEST, 1 VIEW FINDINGS: Chest: Lines and tubes: None Mediastinum: Cardiac and mediastinal shadow is within normal limits for size and contour. Pulmonary vessels: No pulmonary vascular congestion. Lung lowe: Increased interstitial and airspace opacities are noted throughout the lungs without sig nificant change from 01/23/2024, but increased from 01/13/2024 Pleura: No effusion. No pneumothorax. Bones and soft tissues: No acute osseous or soft tissue abnormality. IMPRESSION: 1. No change in lung markings compared to 01/23/2024 THIS IS AN ELECTRONICALLY VERIFIED FINAL REPORT 01/25/2024 2:09 PM - Electronically signed by Carlos Brooks MD
[2024-01-26 06:15] LABS: BASOPHILS % (AUTO) 0.3 % (0.2-1.0); EOSINOPHILS % (AUTO) 0.1 % (0.9-2.9); HEMATOCRIT 36.4 % (42.0-54.0); HEMOGLOBIN 12.3 g/dL (13.5-18.0); LYMPHOCYTES # (AUTO) 0.5 X10^3/uL (1.3-2.9); LYMPHOCYTES % (AUTO) 4.1 % (21.0-51.0); MEAN CORPUSCULAR HEMOGLOBIN 29.4 pg (27.0-34.0); MEAN CORPUSCULAR HGB CONC 33.8 g/dL (33.0-35.0); MEAN CORPUSCULAR VOLUME 86.9 fL (80.0-100.0); MEAN PLATELET VOLUME 7.2 fL (7.4-11.0); MONOCYTES # (AUTO) 0.7 x10^3/uL (0.3-0.8); MONOCYTES % (AUTO) 5.4 % (0.0-13.0); NEUTROPHILS # (AUTO) 11.8 x10^3/uL (2.2-4.8); NEUTROPHILS % (AUTO) 90.1 % (42.0-75.0); PLATELET COUNT 308 X10^3/uL (150.0-450.0); RED BLOOD COUNT 4.19 X10^6/uL (4.7-6.0); RED CELL DISTRIBUTION WIDTH 14.5 % (11.6-16.5); WHITE BLOOD COUNT 13.1 X10^3/uL (3.6-10.0)
[2024-01-26 06:28] LABS: ALANINE AMINOTRANSFERASE 28 Units/L (12-78); ALBUMIN 2.6 g/dL (3.4-5.0); ALKALINE PHOSPHATASE 79 Units/L (46-116); ASPARTATE AMINO TRANSFERASE 32 Units/L (15-37); BLOOD UREA NITROGEN 32 mg/dL (7-18); CALCIUM 8.3 mg/dL (8.5-10.1); CARBON DIOXIDE 27.2 mmol/L (21-32); CHLORIDE 106 mmol/L (98-107); COR CA(FOR HYPOALB) 9.4 mg/dL (8.5-10.1); COR NA(FOR HYPERGLY) 142 mmol/L (136-145); CREATININE 0.92 mg/dL (0.70-1.30); GLUCOSE 121 mg/dL (65-99); POTASSIUM 4.8 mmol/L (3.5-5.1); SODIUM 141 mmol/L (136-145); TOTAL PROTEIN 5.9 g/dL (6.4-8.2); eGFR NON BLACK RACES > 60 (>60)
[2024-01-26 07:16] LABS: BAND NEUTROPHILS % 0 % (0-10); BASOPHILS % (MANUAL) 0 % (0-1); OVALOCYTES SLIGHT; PLATELET MORPHOLOGY COMMENT NORMAL (NORMAL)
--- NOTE | 2024-01-26 09:35 | PCM.PROG ---
Progress Note Progress Note for Day of Date of Exam: 01/26/24 Subjective Subjective: Patient is a 73 year old male admitted for b/l pneumonia and COPD exacerbation. He failed outpatient treatment with Levaquin and steroids. He is currently on 3L NC. He only uses O2 prn at home but lately has been using it more due to dyspnea with exertion. This morning he reports some improvement in his breathing but states his oxygen level drops when he goes to the bathroom without supplemental oxygen. Discussed with patient that he requires oxygen and that he will need to wear it all the time. Pt has home oxygen and we have set up another home oxygen unit for him. He is reluctant to use it due to it being "difficult" to move around. He reports still having some "shakiness" due to the steroids. Labs/imaging reviewed -WBC 13.1, Hgb 12.3, Plt 308, Na 141, K 4.8, Creatinine 0.92, Glucose 121, AIT negative -CXR: b/l patchy opacities -Recent CT-chest: concerning for pulmonary fibrosis Plan: Will decrease solumedrol to 40mg daily, continue bronchodilators and IS. Continue gentle hydration. Wean O2 as tolerated. Home medications have been resumed. Monitor AM labs/imaging. Past Medical Family Social History Allergies: Allergies lidocaine Allergy (Unknown, Verified 08/10/23 09:44) Reason: Drug allergy Penicillins Allergy (Unknown, Verified 08/10/23 09:44) Reason: Drug allergy codeine Allergy (Verified 08/10/23 09:44) procaine [From Novocain] Allergy (Verified 08/10/23 09:44) Review of Systems ROS changes noted: see HPI Vital Signs and I&O's Vital Signs: Vital Signs Temperature 98.0 F Pulse Rate [Left Radial] 81 Pulse Rate 100 Respiratory Rate 20 Blood Pressure [Right Arm] 119/74 O2 Sat by Pulse Oximetry 93 O2 Sat by Pulse Oximetry 95 Intake and Output: Intake & Output 01/23/24 01/24/24 01/25/24 01/26/24 23:59 23:59 23:59 23:59 Intake Total 1816 / 1816 2670 / 2670 1228 / 1228 810 / 810 Output Total 980 / 980 4 / 4 Balance 836 / 836 2666 / 2666 1228 / 1228 810 / 810 Physical Exam Oriented: Normal Eyes: Normal Ear: Normal Nose: Normal Throat: Normal Respiratory: Rhonchi Cardiovascular: Normal : Normal Auscultation: Bowel Sounds: Normal Tenderness: Normal Skin: Normal Musculoskeletal: Normal Psychiatric: Normal Mood Description: Calm and Appropriate Affect: Normal Speech Pattern: Clear and Appropriate Laboratory and Diagnostics 01/26/24 05:57 01/26/24 05:57 Labs: 01/23/24 09:10 Blood Blood Culture - Preliminary 01/23/24 08:55 Blood Blood Culture - Preliminary Laboratory WBC 13.1 X10^3/uL (3.6-10.0) H 01/26/24 05:57 RBC 4.19 X10^6/uL (4.7-6.0) L 01/26/24 05:57 Hgb 12.3 g/dL (13.5-18.0) L 01/26/24 05:57 Hct 36.4 % (42.0-54.0) L 01/26/24 05:57 MCV 86.9 fL (80.0-100.0) 01/26/24 05:57 MCH 29.4 pg (27.0-34.0) 01/26/24 05:57 MCHC 33.8 g/dL (33.0-35.0) 01/26/24 05:57 RDW 14.5 % (11.6-16.5) 01/26/24 05:57 Plt Count 308 X10^3/uL (150.0-450.0) 01/26/24 05:57 Plt Count Comment Adequate (ADEQUATE) 01/26/24 05:57 MPV 7.2 fL (7.4-11.0) L 01/26/24 05:57 Neut % (Auto) 90.1 % (42.0-75.0) H 01/26/24 05:57 Lymph % (Auto) 4.1 % (21.0-51.0) L 01/26/24 05:57 [place] % (Auto) 5.4 % (0.0-13.0) 01/26/24 05:57 Eos % (Auto) 0.1 % (0.9-2.9) L 01/26/24 05:57 Baso % (Auto) 0.3 % (0.2-1.0) 01/26/24 05:57 Neut # (Auto) 11.8 x10^3/uL (2.2-4.8) H 01/26/24 05:57 Lymph # (Auto) 0.5 X10^3/uL (1.3-2.9) L 01/26/24 05:57 [place] # (Auto) 0.7 x10^3/uL (0.3-0.8) 01/26/24 05:57 Eos # (Auto) 0.0 x10^3/uL (0.0-0.2) 01/26/24 05:57 Baso # (Auto) 0.0 X10^3/uL (0.0-0.1) 01/26/24 05:57 Absolute Nucleated RBC 0.0 /100WBC 01/26/24 05:57 Total Counted 100 01/26/24 05:57 Neutrophils % (Manual) 92 % (39-76) H 01/26/24 05:57 Band Neutrophils % 0 % (0-10) 01/26/24 05:57 Lymphocytes % (Manual) 4 % (13-43) L 01/26/24 05:57 Monocytes % (Manual) 4 % (4-9) 01/26/24 05:57 Eosinophils % (Manual) 0 % (0-6) 01/26/24 05:57 Basophils % (Manual) 0 % (0-1) 01/26/24 05:57 Plt Morphology Comment Normal (NORMAL) 01/26/24 05:57 RBC Morphology Abnormal (NORMAL) 01/26/24 05:57 Ovalocytes Slight A 01/26/24 05:57 Sodium 141 mmol/L (136-145) 01/26/24 05:57 Corrected Sodium 142 mmol/L (136-145) 01/26/24 05:57 Potassium 4.8 mmol/L (3.5-5.1) 01/26/24 05:57 Chloride 106 mmol/L (98-107) 01/26/24 05:57 Carbon Dioxide 27.2 mmol/L (21-32) 01/26/24 05:57 BUN 32 mg/dL (7-18) H 01/26/24 05:57 Creatinine 0.92 mg/dL (0.70-1.30) 01/26/24 05:57 Est GFR (MDRD) Af Amer > 60 (>60) 01/26/24 05:57 Est GFR (MDRD) Non-Af > 60 (>60) 01/26/24 05:57 Glucose 121 mg/dL (65-99) H 01/26/24 05:57 POC Glucose (mg/dL) 167 mg/dL (65-99) H 01/23/24 20:28 Lactic Acid 1.0 mmol/L (0.4-2.0) 01/23/24 09:10 Calcium 8.3 mg/dL (8.5-10.1) L 01/26/24 05:57 Corrected Calcium 9.4 mg/dL (8.5-10.1) 01/26/24 05:57 Magnesium 2.4 mg/dL (2.0-2.9) 01/23/24 09:10 Total Bilirubin 0.50 mg/dL (0.2-1.0) 01/26/24 05:57 AST 32 Units/L (15-37) 01/26/24 05:57 ALT 28 Units/L (12-78) 01/26/24 05:57 Alkaline Phosphatase 79 Units/L (46-116) 01/26/24 05:57 B-Natriuretic Peptide 89.7 pg/mL (0-79) H 01/23/24 09:10 Total Protein 5.9 g/dL (6.4-8.2) L 01/26/24 05:57 Albumin 2.6 g/dL (3.4-5.0) L 01/26/24 05:57 Globulin 3.3 g/dL (2.5-4.5) 01/26/24 05:57 Albumin/Globulin Ratio 0.8 Ratio (1.1-2.1) L 01/26/24 05:57 Lipase 39 Units/L (16-77) 01/23/24 09:10 SARS-CoV-2 (PCR) Negative (NEGATIVE) 01/23/24 09:45 Influenza Type A (PCR) Negative (NEGATIVE) 01/23/24 09:45 Influenza Type B (PCR) Negative (NEGATIVE) 01/23/24 09:45 RSV (PCR) Negative (NEGATIVE) 01/23/24 09:45 Resp Viral Panel (PCR) See scanned report 01/23/24 11:27 Plan (1) Pneumonia: Status: Acute Qualifiers: Laterality: bilateral Lung location: unspecified part of lung Pneumonia type: due to unspecified organism Qualified Code(s): J18.9 - Pneumoni a, unspecified organism (2) Hypoxia: Status: Acute (3) Chronic obstructive pulmonary disease with acute exacerbation: Status: Acute (4) Pulmonary fibrosis: Status: Acute (5) History of macrocytic anemia: Status: Chronic (6) HLD (hyperlipidemia): Status: None Qualifiers: Hyperlipidemia type: mixed hyperlipidemia Qualified Code(s): E78.2 - Mixed hyperlipidemia
[2024-01-26] MEDS: NS 250 ML IV 250 ML IV ONE (09:43)
--- NOTE | 2024-01-26 12:56 | EKG ---
Test Reason : chest pressure Blood Pressure : */* mmHG Vent. Rate : 96 BPM Atrial Rate : 96 BPM P-R Int : 182 ms QRS Dur : 112 ms QT Int : 362 ms P-R-T Axes : 48 -13 34 degrees QTc Int : 457 ms Sinus rhythm with occasional premature ventricular complexes Cannot rule out Anterior infarct (cited on or before 23-JAN-2024) Abnormal ECG When compared with ECG of 23-JAN-2024 09:00, premature ventricular complexes are now present Confirmed by Shade Amezquita MD ([id number]) on 01/27/2024 8:30:58 AM Referred By: Confirmed By: Shade Amezquita MD
[2024-01-26] MEDS: TYLENOL 325 MG TAB PO PRN (17:18)
[2024-01-26] MEDS ORDERED: ARTIFICIAL TEARS DROPS AFFEYE PRN (17:25)
[2024-01-26] MEDS: PEPCID TAB 20 MG PO SCH (21:16)
--- NOTE | 2024-01-27 06:09 | RAD ---
EXAM: CHEST, 1 VIEW HISTORY: RIGHT FOOT INFECTION, POSSIBLE OSTEOMYELITIS ; HTN SX: BACK COMPARISON: 01/25/2024 FINDINGS: The trachea is midline. The cardiac silhouette is unremarkable. Increased interstitial and airspace opacities throughout the lungs unchanged.. The bony thorax is unremarkable. IMPRESSION: Increased interstitial and airspace opacities unchanged from previous 01/25/2024 THIS IS AN ELECTRONICALLY VERIFIED FINAL REPORT 01/27/2024 6:05 AM - Electronically signed by Cale Cameron MD
[2024-01-27 07:13] LABS: BASOPHILS % (AUTO) 0.2 % (0.2-1.0); EOSINOPHILS # (AUTO) 0.1 x10^3/uL (0.0-0.2); EOSINOPHILS % (AUTO) 1.2 % (0.9-2.9); HEMOGLOBIN 12.6 g/dL (13.5-18.0); LYMPHOCYTES # (AUTO) 1.6 X10^3/uL (1.3-2.9); LYMPHOCYTES % (AUTO) 15.3 % (21.0-51.0); MEAN CORPUSCULAR HEMOGLOBIN 29.6 pg (27.0-34.0); MEAN CORPUSCULAR VOLUME 87.2 fL (80.0-100.0); MEAN PLATELET VOLUME 7.9 fL (7.4-11.0); MONOCYTES % (AUTO) 9.5 % (0.0-13.0); NEUTROPHILS # (AUTO) 7.5 x10^3/uL (2.2-4.8); NEUTROPHILS % (AUTO) 73.8 % (42.0-75.0); PLATELET COUNT 313 X10^3/uL (150.0-450.0); RED BLOOD COUNT 4.25 X10^6/uL (4.7-6.0); RED CELL DISTRIBUTION WIDTH 14.4 % (11.6-16.5); WHITE BLOOD COUNT 10.2 X10^3/uL (3.6-10.0)
[2024-01-27 07:31] LABS: ALANINE AMINOTRANSFERASE 40 Units/L (12-78); ALBUMIN 2.6 g/dL (3.4-5.0); ALKALINE PHOSPHATASE 79 Units/L (46-116); ASPARTATE AMINO TRANSFERASE 29 Units/L (15-37); BLOOD UREA NITROGEN 27 mg/dL (7-18); CALCIUM 8.2 mg/dL (8.5-10.1); CARBON DIOXIDE 28.1 mmol/L (21-32); CHLORIDE 108 mmol/L (98-107); COR CA(FOR HYPOALB) 9.3 mg/dL (8.5-10.1); CREATININE 0.91 mg/dL (0.70-1.30); GLUCOSE 82 mg/dL (65-99); SODIUM 143 mmol/L (136-145); TOTAL PROTEIN 5.7 g/dL (6.4-8.2); eGFR NON BLACK RACES > 60 (>60)
[2024-01-27] MEDS ORDERED: NS 250 ML IV 250 ML IV ONE (08:14)
[2024-01-27 08:44] VITALS: BP 107/60; RESP 18; TEMP 98
[2024-01-27 09:06] VITALS: PULSE 106; O2SAT 97
[2024-01-27] MEDS: SOLU-Medrol 40 MG VIAL IVP SCH (10:02)
== END 2024-01-27 12:20 | disposition home health service (06) | DRG 194 ==
LOC: ER 08:26 → U 10:13 → MED/SURG 11:51
PROVIDERS: ADMIT Family Medicine; ATTEND Family Medicine
DX: Z20.822 Contact with and (suspected) exposure to COVID-19; E78.2 Mixed hyperlipidemia; J84.10 Pulmonary fibrosis, unspecified; J44.1 Chronic obstructive pulmonary disease with (acute) exacerbation; I10 Essential (primary) hypertension; J18.8 Other pneumonia, unspecified organism; Z86.2 Personal history of diseases of the blood and blood-forming organs and certain disorders involving the immune mechanism; R09.02 Hypoxemia; Z99.81 Dependence on supplemental oxygen; R06.02 Shortness of breath; F41.8 Other specified anxiety disorders

== ENCOUNTER 2024-09-12 01:30 | Observation (INO) ==
[2024-09-12 01:46] VITALS: BMI 28.5
[2024-09-12] MEDS: DUONEB 0.5 MG/3 MG (3 mL) NEB ONE (01:56)
--- NOTE | 2024-09-12 01:58 | EKG ---
Test Reason : Chest pain Blood Pressure : */* mmHG Vent. Rate : 78 BPM Atrial Rate : 78 BPM P-R Int : 166 ms QRS Dur : 104 ms QT Int : 404 ms P-R-T Axes : 79 -40 5 degrees QTc Int : 460 ms Poor data quality, interpretation may be adversely affected Normal sinus rhythm Left axis deviation Minimal voltage criteria for LVH, may be normal variant ( [place] product ) Abnormal ECG When compared with ECG of 04-SEP-2024 13:29, QRS axis shifted left T wave inversion no longer evident in Anterior leads Confirmed by Shade Amezquita MD ([id number]) on 09/12/2024 7:20:42 AM Referred By: Confirmed By: Shade Amezquita MD
[2024-09-12 02:01] LABS: BASOPHILS # (AUTO) 0.1 X10^3/uL (0.0-0.1); BASOPHILS % (AUTO) 1.2 % (0.2-1.0); EOSINOPHILS # (AUTO) 0.7 x10^3/uL (0.0-0.2); EOSINOPHILS % (AUTO) 5.8 % (0.9-2.9); HEMATOCRIT 37.3 % (42.0-54.0); HEMOGLOBIN 12.7 g/dL (13.5-18.0); LYMPHOCYTES # (AUTO) 1.4 X10^3/uL (1.3-2.9); LYMPHOCYTES % (AUTO) 11.8 % (21.0-51.0); MEAN CORPUSCULAR HEMOGLOBIN 29.7 pg (27.0-34.0); MEAN CORPUSCULAR VOLUME 87.4 fL (80.0-100.0); MEAN PLATELET VOLUME 7.6 fL (7.4-11.0); MONOCYTES % (AUTO) 8.4 % (0.0-13.0); NEUTROPHILS # (AUTO) 8.6 x10^3/uL (2.2-4.8); NEUTROPHILS % (AUTO) 72.8 % (42.0-75.0); PLATELET COUNT 234 X10^3/uL (150.0-450.0); RED BLOOD COUNT 4.27 X10^6/uL (4.7-6.0); RED CELL DISTRIBUTION WIDTH 15.6 % (11.6-16.5); WHITE BLOOD COUNT 11.8 X10^3/uL (3.6-10.0)
[2024-09-12 02:12] LABS: ALANINE AMINOTRANSFERASE 42 Units/L (12-78); ALBUMIN 3.4 g/dL (3.4-5.0); ALKALINE PHOSPHATASE 95 Units/L (46-116); ASPARTATE AMINO TRANSFERASE 24 Units/L (15-37); BLOOD UREA NITROGEN 15 mg/dL (7-18); CALCIUM 8.5 mg/dL (8.5-10.1); CHLORIDE 107 mmol/L (98-107); CREATININE 1.17 mg/dL (0.70-1.30); GLUCOSE 104 mg/dL (65-99); MAGNESIUM 1.7 mg/dL (2.0-2.9); SODIUM 144 mmol/L (136-145); TOTAL PROTEIN 6.1 g/dL (6.4-8.2); eGFR NON BLACK RACES > 60 (>60)
--- NOTE | 2024-09-12 03:01 | DR.SOBA ---
HPI Time Seen Time Seen by Provider: 09/12/24 01:43 Primary Care Physician Primary Care Physician: Ana Latif HPI Comment HPI Comment: Patient with complaints of dyspnea on exertion and bilateral heel edema. Patient was recently discharged from hospital but states that he has been having more shortness of breath with exertion at this time he denies chest pain, however he had mentioned to nursing he did have chest pain earlier. Complaints Chief Complaint:: Pt In ED W/Complaints Of SOB, And BLE Edema. Was DC'd From Hospital On Monday and Since About 9pm Tonight He Can't Catch His Breath Worse W/Exertion also Complaining Of Right Sided Chest Pain Radiating Into His Back. COVID-19 Coronavirus risk:travel/contact w/high risk person: No Has patient experienced Coronavirus symptoms: No Source History Provided: Patient Mode of Arrival Mode of Arrival: Ambulatory Timing Onset of Chief Complaint: 09/12/24 PMH PMH Past Medical History: Yes Past Medical History: Anxiety, COPD, Depression, Dyslipidemia, GERD and Hypertension Past Surgical History: No Surgical History: No History Family History History of Family Medical Conditions: Yes Family Medical History: Diabetes Mellitus, Cancer and Hypertension Social History Do you use any recreational Drugs:: No Travel Risk Coronavirus risk:travel/contact w/high risk person: No Has patient experienced Coronavirus symptoms: No Infectious screening Have you traveled outside the country in the last 6 months?: No Isolation: Standard ROS Review of Systems Constitutional: No Symptoms Reported Eyes: No Symptoms Reported ENTM: No Symptoms Reported Respiratoy: No Symptoms Reported Cardiovascular: See HPI and Edema; negative Chest Pain, Palpitations or Syncope Gastrointestinal/Abdominal: No Symptoms Reported Genitourinary: No Symptoms Reported Neurological: No Symptoms Reported Musculoskeletal: No Symptoms Reported Integumentary: No Symptoms Reported Hematologic/Lymphatic: No Symptoms Reported Endocrine: No Symptoms Reported Psychiatric: No Symptoms Reported All Other Systems: Reviewed and Negative PE Vital Signs Vitals: Vital Signs Temperature 97.6 F Pulse Rate 84 Pulse Rate 80 Pulse Rate 81 Pulse Rate 80 Pulse Rate 83 Pulse Rate 82 Pulse Rate 94 Respiratory Rate 22 Respiratory Rate 22 Respiratory Rate 23 Respiratory Rate 28 Respiratory Rate 29 Respiratory Rate 27 Respiratory Rate 32 Blood Pressure 149/84 Blood Pressure 125/74 Blood Pressure 141/70 O2 Sat by Pulse Oximetry 99 O2 Sat by Pulse Oximetry 97 O2 Sat by Pulse Oximetry 98 O2 Sat by Pulse Oximetry 98 O2 Sat by Pulse Oximetry 98 O2 Sat by Pulse Oximetry 97 O2 Sat by Pulse Oximetry 88 General Limitations: No Limitations General Appearance: Alert and In No Apparent Distress Head Head Exam: Normal Inspection Eyes Eye exam: Normal Appearance ENT ENT Exam: Normal Exam Neck Neck Exam: Normal Inspection Chest Chest Inspection: Normal Inspection Respiratory Respiratory Exam: Other (Coarse bilaterally); negative Respiratory Distress Respiratory Exam: Bilateral: Crackles Cardiovascular Cardiovascular Exam: Regular Rate and Normal Rhythm Abdominal Exam Abdominal Exam: Normal Inspection, Normal Bowel Sounds and Soft Extremities Extremities Exam: Normal Inspection Back Back Exam: Normal Inspection Neurologic Neurological Exam: Alert and Oriented X3 Psychiatric Psychiatric Exam: Normal Affect and Normal Mood Skin Skin Exam: Warm, Dry, Intact and Normal Color COURSE Reevaluation 1st: Improved (Patient had some improvement during the emergency medicine visit, however he still having significant shortness of breath.) Consultation Called: 03:04 Consultation Comments: Discussed case with Dr. Osman. He is agreeable to admission ROR Labs Reviewed 09/12/24 01:50 09/12/24 01:50 Laboratory: WBC 11.8 X10^3/uL (3.6-10.0) H 09/12/24 01:50 RBC 4.27 X10^6/uL (4.7-6.0) L 09/12/24 01:50 Hgb 12.7 g/dL (13.5-18.0) L 09/12/24 01:50 Hct 37.3 % (42.0-54.0) L 09/12/24 01:50 MCV 87.4 fL (80.0-100.0) 09/12/24 01:50 MCH 29.7 pg (27.0-34.0) 09/12/24 01:50 MCHC 34.0 g/dL (33.0-35.0) 09/12/24 01:50 RDW 15.6 % (11.6-16.5) 09/12/24 01:50 Plt Count 234 X10^3/uL (150.0-450.0) 09/12/24 01:50 MPV 7.6 fL (7.4-11.0) 09/12/24 01:50 Neut % (Auto) 72.8 % (42.0-75.0) 09/12/24 01:50 Lymph % (Auto) 11.8 % (21.0-51.0) L 09/12/24 01:50 [place] % (Auto) 8.4 % (0.0-13.0) 09/12/24 01:50 Eos % (Auto) 5.8 % (0.9-2.9) H 09/12/24 01:50 Baso % (Auto) 1.2 % (0.2-1.0) H 09/12/24 01:50 Neut # (Auto) 8.6 x10^3/uL (2.2-4.8) H 09/12/24 01:50 Lymph # (Auto) 1.4 X10^3/uL (1.3-2.9) 09/12/24 01:50 [place] # (Auto) 1.0 x10^3/uL (0.3-0.8) H 09/12/24 01:50 Eos # (Auto) 0.7 x10^3/uL (0.0-0.2) H 09/12/24 01:50 Baso # (Auto) 0.1 X10^3/uL (0.0-0.1) 09/12/24 01:50 Absolute Nucleated RBC 0.0 /100WBC 09/12/24 01:50 Sodium 144 mmol/L (136-145) 09/12/24 01:50 Corrected Sodium TNP 09/12/24 01:50 Potassium 4.0 mmol/L (3.5-5.1) 09/12/24 01:50 Chloride 107 mmol/L (98-107) 09/12/24 01:50 Carbon Dioxide 29.0 mmol/L (21-32) 09/12/24 01:50 BUN 15 mg/dL (7-18) 09/12/24 01:50 Creatinine 1.17 mg/dL (0.70-1.30) 09/12/24 01:50 Est GFR (MDRD) Af Amer > 60 (>60) 09/12/24 01:50 Est GFR (MDRD) Non-Af > 60 (>60) 09/12/24 01:50 Glucose 104 mg/dL (65-99) H 09/12/24 01:50 Calcium 8.5 mg/dL (8.5-10.1) 09/12/24 01:50 Corrected Calcium TNP 09/12/24 01:50 Magnesium 1.7 mg/dL (2.0-2.9) L 09/12/24 01:50 Total Bilirubin 0.50 mg/dL (0.2-1.0) 09/12/24 01:50 AST 24 Units/L (15-37) 09/12/24 01:50 ALT 42 Units/L (12-78) 09/12/24 01:50 Alkaline Phosphatase 95 Units/L (46-116) 09/12/24 01:50 Troponin I High Sens 36.9 ng/L (4.0-60.0) 09/12/24 01:50 B-Natriuretic Peptide 522 pg/mL (0-79) H 09/12/24 01:50 Total Protein 6.1 g/dL (6.4-8.2) L 09/12/24 01:50 Albumin 3.4 g/dL (3.4-5.0) 09/12/24 01:50 Globulin 2.7 g/dL (2.5-4.5) 09/12/24 01:50 Albumin/Globulin Ratio 1.3 Ratio (1.1-2.1) 09/12/24 01:50 Opioid Opioid Risk Tool Age (Pedro box if 16-45): No History of Preadolescent Sexual Abuse: No Total: 0 Total Score Risk Category: Low Risk Copyright: Agustín AMES predicting aberrant behaviors Discharge Plan Diagnosis Discharge Problem: Congestive heart failure (CHF), COPD (chronic obstructive pulmonary disease) Discharge Plan Patient Disposition: 09 ADMITTED INPATIENT Condition: Stable Prescriptions: No Action diclofenac sodium 100 mg tablet extended release 24 hr 100 mg PO QDAY MDD 1 with food 14 Days Qty: 14 1RF furosemide 40 mg tablet 20 mg PO QDAY Eliquis 5 mg tablet 5 mg PO BID Breztri Aerosphere 160-9-4.8 mcg/actuation HFA aerosol inhaler 2 inh inhalation BID atorvastatin 40 mg tablet 40 mg PO HS famotidine 40 mg tablet 40 mg PO HS aspirin [Aspir-81] 81 mg Tablet,Delayed Release (Dr/Ec) 81 mg PO QDAY losartan 25 mg Tablet 25 mg PO QDAY omeprazole 20 mg Capsule,Delayed Release(Dr/Ec) 20 mg PO BID albuterol sulfate 90 mcg/actuation Hfa Aerosol Inhaler 2 puff INHALATION Q4-6H PRN finasteride 5 mg Tablet 5 mg PO QDAY loratadine 10 mg Tablet 10 mg PO QDAY metoprolol tartrate 25 mg Tablet 12.5 mg PO BID vitamin P77-ndyma acid 500-400 mcg Tablet 1 tab PO QDAY Rx Instructions: administer with a meal prednisone 10 mg Tablet 40 mg PO QDAY Qty: 5 0RF Health Concerns: Post Hospitalization: new medications and changes needed to prevent readmission or further decline. Pt educated and given instructions on all concerns. Plan of Treatment: Continue with present treatment and follow up plan. Pt is to keep follow up appointment as instructed and take medications as ordered. Orders to Discharge Patient Discharge Orders: Transfer (Routine); Ordered 09/12/24 Ordered By: Chapito Hodges Follow ups/Referrals Follow ups/Referrals: NFD,None [Primary Care Provider] - 3 days Instructions Stand Alone Forms: Post Hospital Follow Up Care
[2024-09-12] MEDS: LASIX IVP ONE (03:14)
[2024-09-12] MEDS ORDERED: VENTOLIN or PROAIR HFA IN PRN (03:51)
[2024-09-12] MEDS ORDERED: CONSULT PHARMACY - POTASSIUM & MAGNESIUM XX SCH (04:00)
[2024-09-12] MEDS: LASIX ONE (04:11)
--- NOTE | 2024-09-12 04:11 | EKG ---
Test Reason : CHF, DIETRICH Blood Pressure : */* mmHG Vent. Rate : 74 BPM Atrial Rate : 74 BPM P-R Int : 164 ms QRS Dur : 118 ms QT Int : 424 ms P-R-T Axes : 41 -47 -8 degrees QTc Int : 470 ms Sinus rhythm with occasional premature ventricular complexes Left axis deviation Incomplete left bundle branch block Minimal voltage criteria for LVH, may be normal variant ( [place] product ) Abnormal ECG When compared with ECG of 12-SEP-2024 01:55, (Unconfirmed) premature ventricular complexes are now present Confirmed by Shade Amezquita MD ([id number]) on 09/12/2024 7:20:23 AM Referred By: Confirmed By: Shade Amezquita MD
--- NOTE | 2024-09-12 04:30 | RAD ---
PROCEDURE: Chest X-ray 2 Views.HISTORY: Pt In ED W/Complaints Of SOB, And BLE Edema. Was DC'd From Hospital On Monday and Since About 9pm Tonight He Can't Catch His Breath Worse W/Exertion also Complaining Of Right Sided Chest Pain Radiating Into His Back.; HTN, COPD, GERD .TECHNIQUE: AP and lateral portable views.COMPARISON: September 04 this year.TECHNICAL QUALITY: Satisfactory.FINDINGS:Unchanged mild cardiomegaly.Mediastinum and hilar regions show no masses or lymphadenopathy.Normal central vascularity.Some consolidation both mid lung lowe suspicious for pneumonia or edema. No pleural fluid.No acute bony abnormality.IMPRESSION:Unchanged cardiomegaly with possible developing pneumonia or edema both mid lung lowe.THIS IS AN ELECTRONICALLY VERIFIED FINAL [id number] 4:26 AM - Electronically signed by Serafin Jose MD
[2024-09-12] MEDS: DUONEB 0.5 MG/3 MG (3 mL) NEB SCH (04:50)
[2024-09-12 05:40] LABS: BASOPHILS # (AUTO) 0.1 X10^3/uL (0.0-0.1); BASOPHILS % (AUTO) 0.5 % (0.2-1.0); EOSINOPHILS # (AUTO) 0.5 x10^3/uL (0.0-0.2); EOSINOPHILS % (AUTO) 4.2 % (0.9-2.9); HEMATOCRIT 37.8 % (42.0-54.0); HEMOGLOBIN 12.9 g/dL (13.5-18.0); LYMPHOCYTES # (AUTO) 1.2 X10^3/uL (1.3-2.9); LYMPHOCYTES % (AUTO) 10.4 % (21.0-51.0); MEAN CORPUSCULAR HEMOGLOBIN 30.1 pg (27.0-34.0); MEAN CORPUSCULAR HGB CONC 34.2 g/dL (33.0-35.0); MEAN PLATELET VOLUME 8.1 fL (7.4-11.0); MONOCYTES # (AUTO) 0.9 x10^3/uL (0.3-0.8); MONOCYTES % (AUTO) 8.4 % (0.0-13.0); NEUTROPHILS # (AUTO) 8.6 x10^3/uL (2.2-4.8); NEUTROPHILS % (AUTO) 76.5 % (42.0-75.0); PLATELET COUNT 241 X10^3/uL (150.0-450.0); RED BLOOD COUNT 4.29 X10^6/uL (4.7-6.0); RED CELL DISTRIBUTION WIDTH 15.5 % (11.6-16.5); WHITE BLOOD COUNT 11.3 X10^3/uL (3.6-10.0)
[2024-09-12 06:05] LABS: ALANINE AMINOTRANSFERASE 43 Units/L (12-78); ALBUMIN 3.5 g/dL (3.4-5.0); ALKALINE PHOSPHATASE 100 Units/L (46-116); ASPARTATE AMINO TRANSFERASE 22 Units/L (15-37); BLOOD UREA NITROGEN 14 mg/dL (7-18); CARBON DIOXIDE 30.4 mmol/L (21-32); CHLORIDE 106 mmol/L (98-107); CREATININE 1.12 mg/dL (0.70-1.30); GLUCOSE 94 mg/dL (65-99); POTASSIUM 3.9 mmol/L (3.5-5.1); SODIUM 144 mmol/L (136-145); TOTAL PROTEIN 6.4 g/dL (6.4-8.2); eGFR NON BLACK RACES > 60 (>60)
[2024-09-12] MEDS: PULMICORT NEB TX 0.5 MG NEB SCH (07:59)
[2024-09-12 08:44] LABS: ABG BASE EXCESS 6.2 mmol/L (-2.0-2.0); ABG HCO3 29.5 mmol/L (22-26)
[2024-09-12] MEDS ORDERED: PATIENT'S HOME MEDICATION (Budesonide-Glycopyr-Formoterol [Breztri Aerosphere] 160-9-4.8 m IN SCH (09:00)
[2024-09-12] MEDS: ELIQUIS PO SCH (10:15)
[2024-09-12] MEDS: PriLOSEC PO SCH (10:15)
[2024-09-12] MEDS: LOPRESSOR TAB 25 MG PO SCH (10:16)
[2024-09-12] MEDS: COZAAR PO SCH (10:16)
[2024-09-12] MEDS: MAG-OX TAB PO SCH ×2 (10:16→20:22)
[2024-09-12] MEDS: ASPIRIN EC 81 MG PO SCH (10:17)
[2024-09-12] MEDS: LASIX IVP SCH (10:18)
[2024-09-12] MEDS ORDERED: MAG-OX TAB ONE (15:00)
[2024-09-12] MEDS: PULMICORT NEB TX 0.5 MG NEB ONE (17:07)
--- NOTE | 2024-09-12 18:10 | DR.H&P ---
H&P History & Physical for Day of: H&P Date: 09/12/24 Chief Complaint Chief Complaint: CP, SOB History of Present Illness History of Present Illness: Pt In ED W/Complaints Of SOB, And BLE Edema. Was DC'd From Hospital On Monday and Since About 9pm Tonight He Can't Catch His Breath Worse W/Exertion also Complaining Of Right Sided Chest Pain Radiating Into His Back. Past Medical History Past Medical History: Anxiety, COPD, Depression, Dyslipidemia, GERD and Hypertension Past Surgical History Surgical History: No History Family History Family Medical History: Diabetes Mellitus, Cancer and Hypertension Social History Does patient currently use any type of tobacco product: No Type of Tobacco Use: None Does any household member use tobacco: No Alcohol Use: None Drug Use: None Medications Home Medications: Home Medications Medication Instructions Recorded Confirmed Type apixaban 5 mg tablet (Eliquis) 5 mg PO BID 07/02/24 09/12/24 History atorvastatin 40 mg tablet 40 mg PO HS 07/02/24 09/12/24 History budesonide 160 mcg-glycopyr 9 2 inh inhalation BID 07/02/24 09/12/24 History mcg-formot 4.8 mcg/actuation HFA inhaler (Breztri Aerosphere) famotidine 40 mg tablet 40 mg PO HS 07/02/24 09/12/24 History furosemide 40 mg tablet 20 mg PO QDAY 07/02/24 09/12/24 History albuterol sulfate 90 mcg/actuation 2 puff inhalation Q4-6H PRN 09/04/24 09/12/24 History aerosol inhaler aspirin 81 mg tablet,delayed 81 mg PO QDAY 09/04/24 09/12/24 History release finasteride 5 mg tablet 5 mg PO QDAY 09/04/24 09/12/24 History loratadine 10 mg tablet 10 mg PO QDAY 09/04/24 09/12/24 History losartan 25 mg tablet 25 mg PO QDAY 09/04/24 09/12/24 History metoprolol tartrate 25 mg tablet 12.5 mg PO BID 09/04/24 09/12/24 History omeprazole 20 mg capsule,delayed 20 mg PO BID 09/04/24 09/12/24 History release vitamin B12 500 mcg-folic acid 400 1 tab PO QDAY 09/04/24 09/12/24 History mcg tablet Allergies Allergies Allergy/AdvReac Type Severity Reaction Status Date / Time lidocaine Allergy Unknown Verified 09/04/24 08:06 Penicillins Allergy Unknown Verified 09/04/24 08:06 codeine Allergy Verified 09/04/24 08:06 procaine [From Novocain] Allergy Verified 09/04/24 08:06 Labs 09/12/24 04:50 09/12/24 04:50 Labs: 09/12/24 08:44 Sputum - Expectorated Sputum - Final Laboratory WBC 11.3 X10^3/uL (3.6-10.0) H 09/12/24 04:50 RBC 4.29 X10^6/uL (4.7-6.0) L 09/12/24 04:50 Hgb 12.9 g/dL (13.5-18.0) L 09/12/24 04:50 Hct 37.8 % (42.0-54.0) L 09/12/24 04:50 MCV 88.0 fL (80.0-100.0) 09/12/24 04:50 MCH 30.1 pg (27.0-34.0) 09/12/24 04:50 MCHC 34.2 g/dL (33.0-35.0) 09/12/24 04:50 RDW 15.5 % (11.6-16.5) 09/12/24 04:50 Plt Count 241 X10^3/uL (150.0-450.0) 09/12/24 04:50 MPV 8.1 fL (7.4-11.0) 09/12/24 04:50 Neut % (Auto) 76.5 % (42.0-75.0) H 09/12/24 04:50 Lymph % (Auto) 10.4 % (21.0-51.0) L 09/12/24 04:50 [place] % (Auto) 8.4 % (0.0-13.0) 09/12/24 04:50 Eos % (Auto) 4.2 % (0.9-2.9) H 09/12/24 04:50 Baso % (Auto) 0.5 % (0.2-1.0) 09/12/24 04:50 Neut # (Auto) 8.6 x10^3/uL (2.2-4.8) H 09/12/24 04:50 Lymph # (Auto) 1.2 X10^3/uL (1.3-2.9) L 09/12/24 04:50 [place] # (Auto) 0.9 x10^3/uL (0.3-0.8) H 09/12/24 04:50 Eos # (Auto) 0.5 x10^3/uL (0.0-0.2) H 09/12/24 04:50 Baso # (Auto) 0.1 X10^3/uL (0.0-0.1) 09/12/24 04:50 Absolute Nucleated RBC 0.0 /100WBC 09/12/24 04:50 Sample Site Rbrac 09/12/24 08:43 ABG pH 7.510 (7.35-7.45) H 09/12/24 08:43 ABG pCO2 37.0 mmHg (35.0-45.0) 09/12/24 08:43 ABG pO2 76.0 mmHg (80.0-100.0) L 09/12/24 08:43 ABG HCO3 29.5 mmol/L (22-26) H 09/12/24 08:43 ABG O2 Saturation 96.0 % (90-100) 09/12/24 08:43 ABG Base Excess 6.2 mmol/L (-2.0-2.0) H 09/12/24 08:43 Dejan Test N/a 09/12/24 08:43 A-a Gradient 106.0 mmHg 09/12/24 08:43 FiO2 32.0 09/12/24 08:43 Blood Gas Comments Shannon well ms/cn 09/12/24 08:43 Sodium 144 mmol/L (136-145) 09/12/24 04:50 Corrected Sodium TNP 09/12/24 04:50 Potassium 3.9 mmol/L (3.5-5.1) 09/12/24 04:50 Chloride 106 mmol/L (98-107) 09/12/24 04:50 Carbon Dioxide 30.4 mmol/L (21-32) 09/12/24 04:50 BUN 14 mg/dL (7-18) 09/12/24 04:50 Creatinine 1.12 mg/dL (0.70-1.30) 09/12/24 04:50 Est GFR (MDRD) Af Amer > 60 (>60) 09/12/24 04:50 Est GFR (MDRD) Non-Af > 60 (>60) 09/12/24 04:50 Glucose 94 mg/dL (65-99) 09/12/24 04:50 Calcium 9.0 mg/dL (8.5-10.1) 09/12/24 04:50 Corrected Calcium TNP 09/12/24 04:50 Magnesium 1.7 mg/dL (2.0-2.9) L 09/12/24 01:50 Total Bilirubin 0.60 mg/dL (0.2-1.0) 09/12/24 04:50 AST 22 Units/L (15-37) 09/12/24 04:50 ALT 43 Units/L (12-78) 09/12/24 04:50 Alkaline Phosphatase 100 Units/L (46-116) 09/12/24 04:50 Troponin I High Sens 36.9 ng/L (4.0-60.0) 09/12/24 01:50 B-Natriuretic Peptide 522 pg/mL (0-79) H 09/12/24 01:50 Total Protein 6.4 g/dL (6.4-8.2) 09/12/24 04:50 Albumin 3.5 g/dL (3.4-5.0) 09/12/24 04:50 Globulin 2.9 g/dL (2.5-4.5) 09/12/24 04:50 Albumin/Globulin Ratio 1.2 Ratio (1.1-2.1) 09/12/24 04:50 Review of Systems Constitutional: No Symptoms Reported and Weakness Eyes: No Symptoms Reported ENT: No Symptoms Reported Respiratory: Shortness of Breath and Wheezing Cardiovascular: Palpitations Gastrointestinal: No Symptoms Reported Genitourinary: No Symptoms Reported Musculoskeletal: No Symptoms Reported Skin: No Symptoms Reported Neurological: Weakness Physical Exam Vital Signs: Vital Signs Temperature 98.6 F Pulse Rate 83 Pulse Rate 80 Respiratory Rate 25 Respiratory Rate 27 Blood Pressure 145/73 Blood Pressure 119/73 O2 Sat by Pulse Oximetry 94 O2 Sat by Pulse Oximetry 94 Oriented: Normal Eyes: Normal Ear: Normal Nose: Normal Throat: Normal Respiratory: Wheezes Throughout Cardiovascular: Murmur : Normal Auscultation: Bowel Sounds: Normal Palpation: Normal Tenderness: Normal Skin: Decreased Turgur Musculoskeletal: Motor Deficit Psychiatric: Normal Mood Description: Calm Affect: Normal Speech Pattern: Clear and Appropriate Assessment/Plan (1) Congestive heart failure (CHF): Status: Acute Plan: ADMIT, SUPPLEMENTAL O2 AGB ON ADMISSION, CXR ON ADMISSION CE AND EKG MONITORING BNP LEVEL AND REPEAT AM SPUTUM CULTLURE, IV ROCEPHIN (2) COPD exacerbation: Status: Acute
[2024-09-12] MEDS: NS 250 ML IV 250 ML IV SCH (19:19)
[2024-09-12] MEDS: ROCEPHIN VIAL 1 GRAM 1 G in NS 100 ML IV 100 ML IV SCH (19:20)
[2024-09-12] MEDS: PROTONIX INJ 40 MG VIAL IVP SCH (19:20)
[2024-09-12] MEDS: SOLU-Medrol 40 MG VIAL IVP SCH (19:20)
[2024-09-12] MEDS: ROBITUSSIN DM PO PRN (20:21)
[2024-09-12] MEDS: PEPCID TAB 40 MG PO SCH (20:22)
[2024-09-12] MEDS: LIPITOR TAB 40 MG PO SCH (20:22)
[2024-09-13 05:11] LABS: HEMOGLOBIN 13.5 g/dL (13.5-18.0); MEAN CORPUSCULAR HGB CONC 33.8 g/dL (33.0-35.0); MONOCYTES # (AUTO) 0.2 x10^3/uL (0.3-0.8)
[2024-09-13 05:18] LABS: BASOPHILS % (AUTO) 0.2 % (0.2-1.0); HEMATOCRIT 39.8 % (42.0-54.0); LYMPHOCYTES # (AUTO) 0.4 X10^3/uL (1.3-2.9); LYMPHOCYTES % (AUTO) 5.9 % (21.0-51.0); MEAN CORPUSCULAR HEMOGLOBIN 29.8 pg (27.0-34.0); MEAN PLATELET VOLUME 8.2 fL (7.4-11.0); MONOCYTES % (AUTO) 2.4 % (0.0-13.0); NEUTROPHILS # (AUTO) 6.8 x10^3/uL (2.2-4.8); NEUTROPHILS % (AUTO) 91.5 % (42.0-75.0); PLATELET COUNT 265 X10^3/uL (150.0-450.0); RED BLOOD COUNT 4.52 X10^6/uL (4.7-6.0); RED CELL DISTRIBUTION WIDTH 15.3 % (11.6-16.5); WHITE BLOOD COUNT 7.5 X10^3/uL (3.6-10.0)
[2024-09-13 05:26] LABS: ALANINE AMINOTRANSFERASE 34 Units/L (12-78); ALBUMIN 3.4 g/dL (3.4-5.0); ALKALINE PHOSPHATASE 96 Units/L (46-116); ASPARTATE AMINO TRANSFERASE 14 Units/L (15-37); BLOOD UREA NITROGEN 19 mg/dL (7-18); CALCIUM 9.2 mg/dL (8.5-10.1); CARBON DIOXIDE 31.5 mmol/L (21-32); CHLORIDE 104 mmol/L (98-107); COR NA(FOR HYPERGLY) 143 mmol/L (136-145); CREATININE 1.14 mg/dL (0.70-1.30); GLUCOSE 134 mg/dL (65-99); MAGNESIUM 2.4 mg/dL (2.0-2.9); SODIUM 142 mmol/L (136-145); TOTAL PROTEIN 6.6 g/dL (6.4-8.2); eGFR NON BLACK RACES > 60 (>60)
[2024-09-13 05:43] LABS: PLATELET MORPHOLOGY COMMENT NORMAL (NORMAL)
[2024-09-13 05:46] LABS: POTASSIUM 5.1 mmol/L (3.5-5.1)
--- NOTE | 2024-09-13 07:50 | RAD ---
EXAM: CHEST, 1 VIEW HISTORY: DIETRICH; HTN, COPD, GERD COMPARISON: September 04 TECHNIQUE: Chest x-ray two views FINDINGS: Stable size and morphology of the cardiac silhouette, mildly enlarged for technique, with accentuated left heart border. Lungs appear hyperinflated to a mild extent. There is marginal blunting of the costophrenic sulci. Bilateral interstitial prominence noted, right slightly more so than left. Background coarsening of the interstitium and fine radiolucencies of the lung parenchyma are demonstrated. There is likely so me background chronic lung changes with emphysema or pulmonary fibrosis, although superimposed inters titial opacities related to edema or atypical pneumonia could not be excluded. There is no radiograp hic evidence of pneumothorax. IMPRESSION: Radiographic features of chronic obstructive pulmonary disease with superimposed fibrous interstitial lung changes. Can not exclude superimposed asymmetric interstitial opacities related to edema or atypical pneumonia . Small bilateral pleural effusions are also suspected Evidence of cardiomegaly THIS IS AN ELECTRONICALLY VERIFIED FINAL REPORT 09/13/2024 7:36 AM - Electronically signed by Johnathan Mckeon MD
[2024-09-13] MEDS: SOLU-Medrol 40 MG VIAL IVP ONE (09:00)
[2024-09-13] MEDS: LASIX IVP ONE (09:55)
[2024-09-13] MEDS: SOLU-Medrol 40 MG VIAL ONE (13:52)
[2024-09-13] MEDS: TUSSIONEX PENNKINETIC SUSP PO PRN (21:38)
[2024-09-14 06:47] LABS: BASOPHILS # (AUTO) 0.2 X10^3/uL (0.0-0.1); BASOPHILS % (AUTO) 0.9 % (0.2-1.0); EOSINOPHILS % (AUTO) 0.1 % (0.9-2.9); HEMATOCRIT 38.8 % (42.0-54.0); HEMOGLOBIN 13.2 g/dL (13.5-18.0); LYMPHOCYTES # (AUTO) 0.8 X10^3/uL (1.3-2.9); LYMPHOCYTES % (AUTO) 4.1 % (21.0-51.0); MEAN CORPUSCULAR HEMOGLOBIN 29.9 pg (27.0-34.0); MEAN CORPUSCULAR HGB CONC 34.1 g/dL (33.0-35.0); MEAN CORPUSCULAR VOLUME 87.6 fL (80.0-100.0); MEAN PLATELET VOLUME 8.4 fL (7.4-11.0); MONOCYTES # (AUTO) 1.5 x10^3/uL (0.3-0.8); MONOCYTES % (AUTO) 7.9 % (0.0-13.0); NEUTROPHILS # (AUTO) 16.5 x10^3/uL (2.2-4.8); PLATELET COUNT 265 X10^3/uL (150.0-450.0); RED BLOOD COUNT 4.43 X10^6/uL (4.7-6.0); RED CELL DISTRIBUTION WIDTH 15.7 % (11.6-16.5)
[2024-09-14 06:54] LABS: ALANINE AMINOTRANSFERASE 27 Units/L (12-78); ALBUMIN 3.4 g/dL (3.4-5.0); ALKALINE PHOSPHATASE 89 Units/L (46-116); ASPARTATE AMINO TRANSFERASE 14 Units/L (15-37); BLOOD UREA NITROGEN 31 mg/dL (7-18); CALCIUM 9.2 mg/dL (8.5-10.1); CARBON DIOXIDE 31.8 mmol/L (21-32); CHLORIDE 102 mmol/L (98-107); COR NA(FOR HYPERGLY) 140 mmol/L (136-145); CREATININE 1.13 mg/dL (0.70-1.30); GLUCOSE 116 mg/dL (65-99); POTASSIUM 4.7 mmol/L (3.5-5.1); SODIUM 140 mmol/L (136-145); TOTAL PROTEIN 6.5 g/dL (6.4-8.2); eGFR NON BLACK RACES > 60 (>60)
--- NOTE | 2024-09-14 09:19 | RAD ---
EXAM:Left foot three viewsHISTORY:Foot painCOMPARISON:NoneFINDINGS:Bone density, joint spaces, articular surfaces and soft tissues are unremarkable.IMPRESSION:No acute or significant findings left foot.THIS IS AN ELECTRONICALLY VERIFIED FINAL [id number] 9:16 AM - Electronically signed by Néstor Quispe MD
--- NOTE | 2024-09-14 11:10 | RAD ---
EXAM: CHEST, 1 VIEW HISTORY: COPD, CHF; COMPARISON: September 13, 2024 TECHNIQUE: 1 frontal view of the chest FINDINGS: Heart is enlarged. There is severe interstitial coarsening bilaterally. No pneumothorax or focal co nsolidation. IMPRESSION: Cardiomegaly with severe interstitial lung disease. Superimposed pneumonia is difficult to exclude. Little interval change. THIS IS AN ELECTRONICALLY VERIFIED FINAL REPORT 09/14/2024 11:07 AM - Electronically signed by Cornelius Sheldon MD
[2024-09-14 17:16] LABS: BILIRUBIN,URINE NEGATIVE (NEGATIVE); BLOOD/HEMOGLOBIN,URINE NEGATIVE (NEGATIVE); GLUCOSE, URINE NEGATIVE (NEGATIVE); KETONES,URINE NEGATIVE (NEGATIVE); LEUKOCYTE ESTERASE ,URINE NEGATIVE (NEGATIVE); NITRITES,URINE NEGATIVE (NEGATIVE); PROTEIN,URINE 1+ (NEGATIVE); UROBILINOGEN,URINE NORMAL (NORMAL)
[2024-09-14 17:19] LABS: APPEARANCE,URINE CLEAR (CLEAR); COLOR,URINE PALE YELLOW (YELLOW)
[2024-09-14 17:24] LABS: BACTERIA,URINE TRACE /HPF (NEGATIVE); RBC,URINE 0-2 /HPF (0-3); SQUAMOUS EPITHELIAL CELL,UR NEGATIVE /HPF (NEGATIVE)
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
[2024-09-15 06:22] LABS: BASOPHILS # (AUTO) 0.1 X10^3/uL (0.0-0.1); BASOPHILS % (AUTO) 0.5 % (0.2-1.0); EOSINOPHILS # (AUTO) 0.3 x10^3/uL (0.0-0.2); EOSINOPHILS % (AUTO) 2.3 % (0.9-2.9); HEMATOCRIT 38.8 % (42.0-54.0); HEMOGLOBIN 13.2 g/dL (13.5-18.0); LYMPHOCYTES # (AUTO) 1.6 X10^3/uL (1.3-2.9); LYMPHOCYTES % (AUTO) 13.6 % (21.0-51.0); MEAN CORPUSCULAR VOLUME 88.3 fL (80.0-100.0); MEAN PLATELET VOLUME 8.3 fL (7.4-11.0); MONOCYTES % (AUTO) 9.1 % (0.0-13.0); NEUTROPHILS # (AUTO) 8.5 x10^3/uL (2.2-4.8); NEUTROPHILS % (AUTO) 74.5 % (42.0-75.0); PLATELET COUNT 260 X10^3/uL (150.0-450.0); WHITE BLOOD COUNT 11.4 X10^3/uL (3.6-10.0)
[2024-09-15 06:30] LABS: ALANINE AMINOTRANSFERASE 27 Units/L (12-78); ALBUMIN 3.2 g/dL (3.4-5.0); ALKALINE PHOSPHATASE 88 Units/L (46-116); ASPARTATE AMINO TRANSFERASE 14 Units/L (15-37); BLOOD UREA NITROGEN 31 mg/dL (7-18); CALCIUM 8.9 mg/dL (8.5-10.1); CARBON DIOXIDE 32.3 mmol/L (21-32); CHLORIDE 103 mmol/L (98-107); COR CA(FOR HYPOALB) 9.5 mg/dL (8.5-10.1); CREATININE 1.14 mg/dL (0.70-1.30); GLUCOSE 88 mg/dL (65-99); POTASSIUM 4.8 mmol/L (3.5-5.1); SODIUM 141 mmol/L (136-145); TOTAL PROTEIN 6.1 g/dL (6.4-8.2); eGFR NON BLACK RACES > 60 (>60)
--- NOTE | 2024-09-15 21:45 | PCM.PROG ---
Progress Note Progress Note for Day of Date of Exam: 09/15/24 Subjective Subjective: Subjective: - Admitted to hospital with significant shortness of breath, oxygen saturation 88% on 3L oxygen on admission ("I was yesterday afternoon, I got to where I when I get started breathing on") - Reports feeling slightly improved today compared to yesterday ("Yeah. A little bit") - Ex perienced unusual sensation this morning ("I just had a kind of a stupid feeling this morning") - Uses albuterol inhaler for breathing difficulties ("I got I got albuterol in my pocket. And I used it yesterday because I got where I couldn't") - Has home nebulizer ("I've gotta get back to the house and get in there and get my nebulizer") Clinical Observations: The patient reports feeling "a little bit" better today than yesterday. White blood cell count decreased from 19,000 yesterday to 11,400 today The patient's neutrophil count is 8,500 this morning Patient is rehydrated Kidney function is normal Liver function tests are normal The urine analysis from yesterday shows no urinary tract infection, but there are trace bacteria in the urine. Lung auscultation: No anterior wheezing Mild anterior Ronchi Mild wheezing posteriorly in the base of the lungs Mild Ronchi in the middle part of the lungs No wheezing in the upper part of the lungs A little bit of rhonchi in the right upper lung Overall improvement in lung sounds compared to yesterday Heart sounds good Oxygen saturation is 95% on 3 liters, improved from 88% on admission The patient has more color this morning The patient reports that breathing treatments are helpful but do not fully resolve his symptoms. Past Medical Family Social History Allergies: Allergies lidocaine Allergy (Unknown, Verified 09/04/24 08:06) Reason: Drug allergy Penicillins Allergy (Unknown, Verified 09/04/24 08:06) Reason: Drug allergy codeine Allergy (Verified 09/04/24 08:06) procaine [From Novocain] Allergy (Verified 09/04/24 08:06) Review of Systems ROS: No change since H&P and Changes notes (describe) (Anger and irritability) Vital Signs and I&O's Vital Signs: Vital Signs Temperature 97.9 F Temperature 98.5 F Pulse Rate 77 Pulse Rate 78 Pulse Rate 77 Respiratory Rate 19 Respiratory Rate 20 Blood Pressure 124/64 Blood Pressure 109/57 O2 Sat by Pulse Oximetry 97 O2 Sat by Pulse Oximetry 98 O2 Sat by Pulse Oximetry 96 Review of Systems: - Constitutional symptoms: Improved from yesterday ("Yeah. A little bit") - Respiratory: Significant shortness of breath requiring oxygen therapy and breathing treatments ("Well, I was yesterday afternoon, I got to where I when I get started breathing on") - Cardiovascular: Known valve issue, awaiting echocardiogram ("They they told me that valve") Objective: - Vital Signs: - Oxygen saturation 95% on 3L oxygen, improved from 88% on admission - Physical Examination: - Respiratory: Improved from yesterday - Anterior: No wheezing, mild bronchi - Posterior: Respiratory wheezing at lung bases with mild bronchi - Middle lungs: Mild bronchi - Right upper lobe: Mild bronchi - Cardiovascular: Normal heart sounds - Laboratory Results: - WBC decreased from 19,000 to 11,400 - Neutrophil count 8,500 - Normal renal function - Normal liver function tests - Urinalysis: Trace bacteria, no UTI - Imaging: - Chest X-ray (14 Sep 2024): Cardiomegaly with severe interstitial lung disease, possible superimposed pneumonia Intake and Output: Intake & Output 09/13/24 09/14/24 09/15/24 09/16/24 11:59 11:59 11:59 11:59 Intake Total 1170 / 1170 960 / 960 320 / 320 690 / 690 Output Total 2350 / 2350 700 / 700 650 / 650 Balance -1180 / -1180 260 / 260 320 / 320 40 / 40 Physical Exam Oriented: Normal Eyes: Normal Ear: Normal Nose: Normal Throat: Normal Respiratory: Generalized, Diminished, Wheezes and Rhonchi; negative Rales Cardiovascular: Murmur : Normal Auscultation: Bowel Sounds: Normal Tenderness: Normal Skin: Decreased Turgur Musculoskeletal: Motor Deficit Psychiatric: Normal Mood Description: Calm Affect: Normal Speech Pattern: Clear and Appropriate Laboratory and Diagnostics 09/15/24 05:10 09/15/24 05:10 Labs: 09/12/24 08:44 Sputum - Expectorated Sputum Sputum Culture - Final 09/12/24 08:44 Sputum - Expectorated Sputum - Final Laboratory WBC 11.4 X10^3/uL (3.6-10.0) H 09/15/24 05:10 RBC 4.40 X10^6/uL (4.7-6.0) L 09/15/24 05:10 Hgb 13.2 g/dL (13.5-18.0) L 09/15/24 05:10 Hct 38.8 % (42.0-54.0) L 09/15/24 05:10 MCV 88.3 fL (80.0-100.0) 09/15/24 05:10 MCH 30.0 pg (27.0-34.0) 09/15/24 05:10 MCHC 34.0 g/dL (33.0-35.0) 09/15/24 05:10 RDW 16.0 % (11.6-16.5) 09/15/24 05:10 Plt Count 260 X10^3/uL (150.0-450.0) 09/15/24 05:10 Plt Count Comment Adequate (ADEQUATE) 09/13/24 04:30 MPV 8.3 fL (7.4-11.0) 09/15/24 05:10 Neut % (Auto) 74.5 % (42.0-75.0) 09/15/24 05:10 Lymph % (Auto) 13.6 % (21.0-51.0) L 09/15/24 05:10 [place] % (Auto) 9.1 % (0.0-13.0) 09/15/24 05:10 Eos % (Auto) 2.3 % (0.9-2.9) 09/15/24 05:10 Baso % (Auto) 0.5 % (0.2-1.0) 09/15/24 05:10 Neut # (Auto) 8.5 x10^3/uL (2.2-4.8) H 09/15/24 05:10 Lymph # (Auto) 1.6 X10^3/uL (1.3-2.9) 09/15/24 05:10 [place] # (Auto) 1.0 x10^3/uL (0.3-0.8) H 09/15/24 05:10 Eos # (Auto) 0.3 x10^3/uL (0.0-0.2) H 09/15/24 05:10 Baso # (Auto) 0.1 X10^3/uL (0.0-0.1) 09/15/24 05:10 Absolute Nucleated RBC 0.2 /100WBC 09/15/24 05:10 Total Counted 100 09/13/24 04:30 Neutrophils % (Manual) 86 % (39-76) H 09/13/24 04:30 Lymphocytes % (Manual) 12 % (13-43) L 09/13/24 04:30 Monocytes % (Manual) 2 % (4-9) L 09/13/24 04:30 Plt Morphology Comment Normal (NORMAL) 09/13/24 04:30 RBC Morphology Normal (NORMAL) 09/13/24 04:30 Sample Site [facility] 09/12/24 08:43 ABG pH 7.510 (7.35-7.45) H 09/12/24 08:43 ABG pCO2 37.0 mmHg (35.0-45.0) 09/12/24 08:43 ABG pO2 76.0 mmHg (80.0-100.0) L 09/12/24 08:43 ABG HCO3 29.5 mmol/L (22-26) H 09/12/24 08:43 ABG O2 Saturation 96.0 % (90-100) 09/12/24 08:43 ABG Base Excess 6.2 mmol/L (-2.0-2.0) H 09/12/24 08:43 Dejan Test N/a 09/12/24 08:43 A-a Gradient 106.0 mmHg 09/12/24 08:43 FiO2 32.0 09/12/24 08:43 Blood Gas Comments Shannon well ms/cn 09/12/24 08:43 Sodium 141 mmol/L (136-145) 09/15/24 05:10 Corrected Sodium TNP 09/15/24 05:10 Potassium 4.8 mmol/L (3.5-5.1) 09/15/24 05:10 Chloride 103 mmol/L (98-107) 09/15/24 05:10 Carbon Dioxide 32.3 mmol/L (21-32) H 09/15/24 05:10 BUN 31 mg/dL (7-18) H 09/15/24 05:10 Creatinine 1.14 mg/dL (0.70-1.30) 09/15/24 05:10 Est GFR (MDRD) Af Amer > 60 (>60) 09/15/24 05:10 Est GFR (MDRD) Non-Af > 60 (>60) 09/15/24 05:10 Glucose 88 mg/dL (65-99) 09/15/24 05:10 Uric Acid 7.0 mg/dL (3.5-7.2) 09/13/24 04:30 Calcium 8.9 mg/dL (8.5-10.1) 09/15/24 05:10 Corrected Calcium 9.5 mg/dL (8.5-10.1) 09/15/24 05:10 Magnesium 2.4 mg/dL (2.0-2.9) 09/13/24 04:30 Total Bilirubin 0.60 mg/dL (0.2-1.0) 09/15/24 05:10 AST 14 Units/L (15-37) L 09/15/24 05:10 ALT 27 Units/L (12-78) 09/15/24 05:10 Alkaline Phosphatase 88 Units/L (46-116) 09/15/24 05:10 Troponin I High Sens 36.9 ng/L (4.0-60.0) 09/12/24 01:50 B-Natriuretic Peptide 325 pg/mL (0-79) H 09/13/24 04:30 Total Protein 6.1 g/dL (6.4-8.2) L 09/15/24 05:10 Albumin 3.2 g/dL (3.4-5.0) L 09/15/24 05:10 Globulin 2.9 g/dL (2.5-4.5) 09/15/24 05:10 Albumin/Globulin Ratio 1.1 Ratio (1.1-2.1) 09/15/24 05:10 Specimen Type Clean catch urine 09/14/24 16:57 Urine Color Pale yellow (YELLOW) 09/14/24 16:57 Urine Appearance Clear (CLEAR) 09/14/24 16:57 Urine pH 6.0 (5.0 - 8.0) 09/14/24 16:57 Ur Specific [place] 1.020 (1.000-1.030) 09/14/24 16:57 Urine Protein 1+ (NEGATIVE) 09/14/24 16:57 Urine Glucose (UA) Negative (NEGATIVE) 09/14/24 16:57 Urine Ketones Negative (NEGATIVE) 09/14/24 16:57 Urine Blood Negative (NEGATIVE) 09/14/24 16:57 Urine Nitrite Negative (NEGATIVE) 09/14/24 16:57 Urine Bilirubin Negative (NEGATIVE) 09/14/24 16:57 Urine Urobilinogen Normal (NORMAL) 09/14/24 16:57 Ur Leukocyte Esterase Negative (NEGATIVE) 09/14/24 16:57 Urine RBC 0-2 /HPF (0-3) 09/14/24 16:57 Urine WBC 0-2 /HPF (0-5) 09/14/24 16:57 Ur Squamous Epith Cells Negative /HPF (NEGATIVE) 09/14/24 16:57 Urine Bacteria Trace /HPF (NEGATIVE) 09/14/24 16:57 Urine Mucus Rare /HPF (NEGATIVE) 09/14/24 16:57 Ur Culture Indicated? No/not indicated 09/14/24 16:57 Resp Viral Panel (PCR) See scanned report 09/12/24 05:25 Radiology Reviewed: Yes Plan (1) Congestive heart failure (CHF): Status: Acute Plan: ADMIT, SUPPLEMENTAL O2 AGB ON ADMISSION, CXR ON ADMISSION CE AND EKG MONITORING BNP LEVEL AND REPEAT AM SPUTUM CULTLURE, IV ROCEPHIN (2) COPD exacerbation: Status: Acute Plan: 15 September 2024: Plan/Recommendations Continue antibiotics started yesterday Discontinue albuterol and switch to DuoNeb's every 6 hours Add Budesonide twice daily Continue oxygen therapy at 3 liters An echocardiogram is to be scheduled for tomorrow. Continue monitoring white blood cell count and oxygen saturation repeat chest x- ray tomorrow morning.
--- NOTE | 2024-09-16 05:21 | EKG ---
Test Reason : chest pain Blood Pressure : */* mmHG Vent. Rate : 68 BPM Atrial Rate : 68 BPM P-R Int : 182 ms QRS Dur : 110 ms QT Int : 414 ms P-R-T Axes : 71 -34 -16 degrees QTc Int : 440 ms Normal sinus rhythm Left axis deviation Anterior infarct , age undetermined Abnormal ECG When compared with ECG of 12-SEP-2024 03:51, premature ventricular complexes are no longer present Nonspecific T wave abnormality now evident in Lateral leads Confirmed by Shade Amezquita MD ([id number]) on 09/16/2024 7:29:06 AM Referred By: Confirmed By: Shade Amezquita MD
[2024-09-16 06:07] LABS: BASOPHILS # (AUTO) 0.1 X10^3/uL (0.0-0.1); BASOPHILS % (AUTO) 0.7 % (0.2-1.0); EOSINOPHILS # (AUTO) 0.3 x10^3/uL (0.0-0.2); EOSINOPHILS % (AUTO) 3.3 % (0.9-2.9); HEMATOCRIT 39.9 % (42.0-54.0); HEMOGLOBIN 13.5 g/dL (13.5-18.0); LYMPHOCYTES # (AUTO) 1.1 X10^3/uL (1.3-2.9); MEAN CORPUSCULAR HEMOGLOBIN 30.1 pg (27.0-34.0); MEAN CORPUSCULAR HGB CONC 33.9 g/dL (33.0-35.0); MEAN PLATELET VOLUME 8.3 fL (7.4-11.0); MONOCYTES # (AUTO) 0.9 x10^3/uL (0.3-0.8); MONOCYTES % (AUTO) 9.7 % (0.0-13.0); NEUTROPHILS # (AUTO) 7.3 x10^3/uL (2.2-4.8); NEUTROPHILS % (AUTO) 75.3 % (42.0-75.0); PLATELET COUNT 243 X10^3/uL (150.0-450.0); RED BLOOD COUNT 4.49 X10^6/uL (4.7-6.0); RED CELL DISTRIBUTION WIDTH 15.6 % (11.6-16.5); WHITE BLOOD COUNT 9.7 X10^3/uL (3.6-10.0)
[2024-09-16 06:21] LABS: ALANINE AMINOTRANSFERASE 25 Units/L (12-78); ALKALINE PHOSPHATASE 89 Units/L (46-116); ASPARTATE AMINO TRANSFERASE 15 Units/L (15-37); BLOOD UREA NITROGEN 22 mg/dL (7-18); CALCIUM 8.8 mg/dL (8.5-10.1); CARBON DIOXIDE 29.5 mmol/L (21-32); CHLORIDE 106 mmol/L (98-107); COR CA(FOR HYPOALB) 9.6 mg/dL (8.5-10.1); CREATININE 1.01 mg/dL (0.70-1.30); GLUCOSE 100 mg/dL (65-99); POTASSIUM 4.5 mmol/L (3.5-5.1); SODIUM 143 mmol/L (136-145); TOTAL PROTEIN 6.1 g/dL (6.4-8.2); eGFR NON BLACK RACES > 60 (>60)
[2024-09-16] MEDS: PEPCID 20 MG VIAL 20 MG in NS 50 ML IV 50 ML IV ONE (08:22)
--- NOTE | 2024-09-16 11:11 | RAD ---
EXAM:CHEST x-ray, 1 VIEWHISTORY:sob, possible pneumonia -COMPARISON:X-ray 09/14/2024FINDINGS:Persistent interstitial densities in the lungs suggest chronic interstitial lung disease. No acute infiltrate is seen. Heart is upper normal limits in size. No pneumothorax or pleural effusion is seen. Calcified granuloma are seen in the lungs.IMPRESSION:Moderate to prominent chronic interstitial lung disease changes are suspected without evidence of an acute infiltrate.THIS IS AN ELECTRONICALLY VERIFIED FINAL [id number]/2024 11:08 AM - Electronically signed by Stephen Swain MD
[2024-09-16 12:00] VITALS: BP 111/61; PULSE 75; RESP 19; TEMP 98.3; O2SAT 97
--- NOTE | 2024-09-16 15:09 | RAD ---
EXAM:CHEST x-ray, 1 VIEWHISTORY:SOB, POSS PNA -COMPARISON:X-ray 09/15/2024FINDINGS:Chronic interstitial lung disease changes are similar to prior study. An acute infiltrate is not seen. Borderline cardiomegaly persists. Small right pleural effusion is not excluded. No pneumothorax is seen.IMPRESSION:Possible development of small right pleural effusion but the chest is similar in appearance, otherwise.THIS IS AN ELECTRONICALLY VERIFIED FINAL [id number]/16/2024 3:06 PM - Electronically signed by Stephen Swain MD
== END 2024-09-16 13:10 | disposition home health service (06) ==
LOC: ER 01:30 → ICU 01:30 → MED/SURG 09-13 15:47
PROVIDERS: ADMIT Internal Medicine; ATTEND Internal Medicine
DX: J90 Pleural effusion, not elsewhere classified; J44.1 Chronic obstructive pulmonary disease with (acute) exacerbation; Z60.8 Other problems related to social environment; I50.9 Heart failure, unspecified; R94.31 Abnormal electrocardiogram [ECG] [EKG]; K21.9 Gastro-esophageal reflux disease without esophagitis; R42 Dizziness and giddiness; Z65.8 Other specified problems related to psychosocial circumstances; R60.0 Localized edema; I25.10 Atherosclerotic heart disease of native coronary artery without angina pectoris; R06.02 Shortness of breath; R07.89 Other chest pain; E83.42 Hypomagnesemia; F41.8 Other specified anxiety disorders; E78.5 Hyperlipidemia, unspecified; M79.672 Pain in left foot; I11.0 Hypertensive heart disease with heart failure

== ENCOUNTER 2025-01-17 02:46 | Observation (INO) ==
--- NOTE | 2025-01-17 02:58 | EKG ---
Test Reason : Chest pain Blood Pressure : */* mmHG Vent. Rate : 82 BPM Atrial Rate : 82 BPM P-R Int : 194 ms QRS Dur : 118 ms QT Int : 404 ms P-R-T Axes : 62 -50 13 degrees QTc Int : 472 ms Sinus rhythm with occasional premature ventricular complexes Left axis deviation Incomplete left bundle branch block Abnormal ECG When compared with ECG of 21-NOV-2024 13:14, Nonspecific T wave abnormality has replaced inverted T waves in Inferior leads Confirmed by Shade Amezquita MD ([id number]) on 01/17/2025 7:19:55 AM Referred By: Confirmed By: Shade Amezquita MD
[2025-01-17 03:16] VITALS: BMI 25.0
[2025-01-17 03:18] LABS: BASOPHILS # (AUTO) 0.1 X10^3/uL (0.0-0.1); BASOPHILS % (AUTO) 0.9 % (0.2-1.0); EOSINOPHILS # (AUTO) 0.3 x10^3/uL (0.0-0.2); HEMATOCRIT 36.4 % (42.0-54.0); HEMOGLOBIN 12.3 g/dL (13.5-18.0); LYMPHOCYTES # (AUTO) 0.9 X10^3/uL (1.3-2.9); LYMPHOCYTES % (AUTO) 11.8 % (21.0-51.0); MEAN CORPUSCULAR HEMOGLOBIN 29.4 pg (27.0-34.0); MEAN CORPUSCULAR HGB CONC 33.6 g/dL (33.0-35.0); MEAN CORPUSCULAR VOLUME 87.3 fL (80.0-100.0); MEAN PLATELET VOLUME 7.9 fL (7.4-11.0); MONOCYTES # (AUTO) 0.7 x10^3/uL (0.3-0.8); MONOCYTES % (AUTO) 9.2 % (0.0-13.0); NEUTROPHILS # (AUTO) 5.7 x10^3/uL (2.2-4.8); NEUTROPHILS % (AUTO) 74.1 % (42.0-75.0); PLATELET COUNT 209 X10^3/uL (150.0-450.0); RED BLOOD COUNT 4.17 X10^6/uL (4.7-6.0); RED CELL DISTRIBUTION WIDTH 14.1 % (11.6-16.5); WHITE BLOOD COUNT 7.7 X10^3/uL (3.6-10.0)
[2025-01-17] MEDS: DUONEB 0.5 MG/3 MG (3 mL) NEB ONE (03:23)
[2025-01-17 03:29] LABS: ALANINE AMINOTRANSFERASE 36 Units/L (12-78); ALBUMIN 3.2 g/dL (3.4-5.0); ALKALINE PHOSPHATASE 136 Units/L (46-116); ASPARTATE AMINO TRANSFERASE 27 Units/L (15-37); BLOOD UREA NITROGEN 19 mg/dL (7-18); CALCIUM 8.7 mg/dL (8.5-10.1); CARBON DIOXIDE 28.5 mmol/L (21-32); CHLORIDE 105 mmol/L (98-107); COR CA(FOR HYPOALB) 9.3 mg/dL (8.5-10.1); CREATINE KINASE 76 Units/L (39-308); CREATININE 1.15 mg/dL (0.70-1.30); GLUCOSE 92 mg/dL (65-99); MAGNESIUM 1.9 mg/dL (2.0-2.9); POTASSIUM 3.8 mmol/L (3.5-5.1); SODIUM 142 mmol/L (136-145); TOTAL PROTEIN 6.1 g/dL (6.4-8.2); eGFR NON BLACK RACES > 60 (>60)
--- NOTE | 2025-01-17 03:59 | DR.CP ---
HPI Time Seen Time Seen by Provider: 01/17/25 03:58 PCP Primary Care Physician: RADHA Crowell HPI Comment HPI Comment: Patient with complaint of chest pain that started in the morning. Patient states he had the chest pain also yesterday but this 1 started today. Patient states he has been getting a little more short of breath. Was on 2 L nasal cannula upon arrival to ER. Patient does history of CHF and COPD. Complaint Chief Complaint:: Patient brought in er via ems with complaints of chest pain that started yesterday morning. Pt also complains of difficulty breathing. Pt on 2L NC upon arrival to er. No s/s distress noted upon arrival. Self Treatment fo Chief Complaint: Albuterol Rescue enhaler Albuterol breathing treatment COVID-19 Coronavirus risk:travel/contact w/high risk person: No Has patient experienced Coronavirus symptoms: No Source History Provided: Patient Mode of Arrival Mode of Arrival: EMS Timing Onset of Chief Complaint: 01/16/25 PMH PMH Past Medical History: Yes Past Medical History: Anemia, Anxiety, CHF, COPD, Depression, Dyslipidemia, GERD, Hypertension and [place] Past Medical History Comment: BPH Past Surgical History: Yes Surgical History: Other Family History History of Family Medical Conditions: Yes Family Medical History: Diabetes Mellitus, Cancer and Hypertension Social History Does patient currently use any type of tobacco product: No Have you used tobacco products in the last 12 months: No Type of Tobacco Use: None Does any household member use tobacco: No Alcohol Use: None Do you use any recreational Drugs:: No Lives With: Friend Lives Where: with friend Travel Risk Coronavirus risk:travel/contact w/high risk person: No Has patient experienced Coronavirus symptoms: No Infectious screening Have you traveled outside the country in the last 6 months?: No Isolation: Standard ROS Review of Systems Constitutional: No Symptoms Reported Eyes: No Symptoms Reported ENTM: No Symptoms Reported Respiratoy: See HPI, Dry Cough and Short of Breath Cardiovascular: Chest Pain and Edema (Pedal); negative Palpitations or Syncope Gastrointestinal/Abdominal: No Symptoms Reported Genitourinary: No Symptoms Reported Neurological: No Symptoms Reported Musculoskeletal: No Symptoms Reported Integumentary: No Symptoms Reported Hematologic/Lymphatic: No Symptoms Reported Endocrine: No Symptoms Reported Psychiatric: No Symptoms Reported All Other Systems: Reviewed and Negative PE Vitals Vitals: Vital Signs Temperature 98.2 F Pulse Rate 96 Pulse Rate 78 Pulse Rate 77 Pulse Rate 81 Pulse Rate 82 Pulse Rate 86 Pulse Rate 88 Pulse Rate 87 Pulse Rate 85 Pulse Rate 98 Pulse Rate 91 Pulse Rate 89 Pulse Rate 87 Pulse Rate 87 Pulse Rate 86 Pulse Rate 93 Pulse Rate 86 Pulse Rate 82 Pulse Rate 85 Pulse Rate 90 Respiratory Rate 21 Respiratory Rate 19 Respiratory Rate 22 Respiratory Rate 24 Respiratory Rate 23 Respiratory Rate 23 Respiratory Rate 22 Respiratory Rate 23 Respiratory Rate 31 Respiratory Rate 33 Respiratory Rate 20 Respiratory Rate 20 Respiratory Rate 28 Respiratory Rate 31 Respiratory Rate 28 Respiratory Rate 34 Respiratory Rate 21 Blood Pressure 139/75 Blood Pressure 138/79 Blood Pressure 144/82 Blood Pressure 145/79 Blood Pressure 122/63 O2 Sat by Pulse Oximetry 98 O2 Sat by Pulse Oximetry 99 O2 Sat by Pulse Oximetry 98 O2 Sat by Pulse Oximetry 97 O2 Sat by Pulse Oximetry 98 O2 Sat by Pulse Oximetry 98 O2 Sat by Pulse Oximetry 99 O2 Sat by Pulse Oximetry 97 O2 Sat by Pulse Oximetry 96 O2 Sat by Pulse Oximetry 91 O2 Sat by Pulse Oximetry 92 O2 Sat by Pulse Oximetry 100 O2 Sat by Pulse Oximetry 88 O2 Sat by Pulse Oximetry 95 O2 Sat by Pulse Oximetry 93 O2 Sat by Pulse Oximetry 92 General Limitations: No Limitations General Appearance: Alert and In No Apparent Distress Head Head Exam: Normal Inspection Eyes Eye exam: Normal Appearance ENT ENT Exam: Normal Exam Chest Chest Inspection: Normal Inspection Respiratory Respiratory Exam: Other (Mild crackles bilateral lower lobes) Cardiovascular Cardiovascular Exam: Regular Rate and Normal Rhythm Pulse: Normal Edema: 1 and Bilateral Abdominal Exam Abdominal Exam: Normal Inspection, Normal Bowel Sounds and Soft Extremities Extremities Exam: Normal Inspection Back Back Exam: Normal Inspection Neurologic Neurological Exam: Alert and Oriented X3 Psychiatric Psychiatric Exam: Normal Affect and Normal Mood Skin Skin Exam: Warm, Dry, Intact and Normal Color COURSE Treatment Treatment: Patient's breathing improved significantly with IV Lasix. Discussed results with patient. Troponins negative x 2. Consultation Called: 07:27 Consultation Comments: Discussed case with Dr. Do. Agreeable to admission. ROR Labs Reviewed 01/17/25 03:05 01/17/25 03:05 Laboratory: WBC 7.7 X10^3/uL (3.6-10.0) 01/17/25 03:05 RBC 4.17 X10^6/uL (4.7-6.0) L 01/17/25 03:05 Hgb 12.3 g/dL (13.5-18.0) L 01/17/25 03:05 Hct 36.4 % (42.0-54.0) L 01/17/25 03:05 MCV 87.3 fL (80.0-100.0) 01/17/25 03:05 MCH 29.4 pg (27.0-34.0) 01/17/25 03:05 MCHC 33.6 g/dL (33.0-35.0) 01/17/25 03:05 RDW 14.1 % (11.6-16.5) 01/17/25 03:05 Plt Count 209 X10^3/uL (150.0-450.0) 01/17/25 03:05 MPV 7.9 fL (7.4-11.0) 01/17/25 03:05 Neut % (Auto) 74.1 % (42.0-75.0) 01/17/25 03:05 Lymph % (Auto) 11.8 % (21.0-51.0) L 01/17/25 03:05 [place] % (Auto) 9.2 % (0.0-13.0) 01/17/25 03:05 Eos % (Auto) 4.0 % (0.9-2.9) H 01/17/25 03:05 Baso % (Auto) 0.9 % (0.2-1.0) 01/17/25 03:05 Neut # (Auto) 5.7 x10^3/uL (2.2-4.8) H 01/17/25 03:05 Lymph # (Auto) 0.9 X10^3/uL (1.3-2.9) L 01/17/25 03:05 [place] # (Auto) 0.7 x10^3/uL (0.3-0.8) 01/17/25 03:05 Eos # (Auto) 0.3 x10^3/uL (0.0-0.2) H 01/17/25 03:05 Baso # (Auto) 0.1 X10^3/uL (0.0-0.1) 01/17/25 03:05 Absolute Nucleated RBC 0.0 /100WBC 01/17/25 03:05 Sodium 142 mmol/L (136-145) 01/17/25 03:05 Corrected Sodium TNP 01/17/25 03:05 Potassium 3.8 mmol/L (3.5-5.1) 01/17/25 03:05 Chloride 105 mmol/L (98-107) 01/17/25 03:05 Carbon Dioxide 28.5 mmol/L (21-32) 01/17/25 03:05 BUN 19 mg/dL (7-18) H 01/17/25 03:05 Creatinine 1.15 mg/dL (0.70-1.30) 01/17/25 03:05 Est GFR (MDRD) Af Amer > 60 (>60) 01/17/25 03:05 Est GFR (MDRD) Non-Af > 60 (>60) 01/17/25 03:05 Glucose 92 mg/dL (65-99) 01/17/25 03:05 Calcium 8.7 mg/dL (8.5-10.1) 01/17/25 03:05 Corrected Calcium 9.3 mg/dL (8.5-10.1) 01/17/25 03:05 Magnesium 1.9 mg/dL (2.0-2.9) L 01/17/25 03:05 Total Bilirubin 0.60 mg/dL (0.2-1.0) 01/17/25 03:05 AST 27 Units/L (15-37) 01/17/25 03:05 ALT 36 Units/L (12-78) 01/17/25 03:05 Alkaline Phosphatase 136 Units/L (46-116) H 01/17/25 03:05 Creatine Kinase 76 Units/L (39-308) 01/17/25 03:05 Troponin I High Sens 37.5 ng/L (4.0-60.0) 01/17/25 05:35 B-Natriuretic Peptide 639 pg/mL (0-79) H 01/17/25 03:05 Total Protein 6.1 g/dL (6.4-8.2) L 01/17/25 03:05 Albumin 3.2 g/dL (3.4-5.0) L 01/17/25 03:05 Globulin 2.9 g/dL (2.5-4.5) 01/17/25 03:05 Albumin/Globulin Ratio 1.1 Ratio (1.1-2.1) 01/17/25 03:05 Opioid Opioid Risk Tool Age (Pedro box if 16-45): No History of Preadolescent Sexual Abuse: No Total: 0 Total Score Risk Category: Low Risk Copyright: Agustín AMES predicting aberrant behaviors Discharge Plan Diagnosis Discharge Problem: Chest pain, Acute exacerbation of CHF (congestive heart failure) Discharge Plan Patient Disposition: ADMITTED INPATIENT Condition: Stable Prescriptions: No Action Eliquis 5 mg tablet 5 mg PO BID MDD 2 30 Days Qty: 60 0RF tamsulosin 0.4 mg capsule 0.4 mg PO QDAY 30 Days Qty: 30 1RF dicyclomine 10 mg capsule 10 mg PO TID MDD 3 30 Days Qty: 90 0RF furosemide 20 mg tablet 20 mg PO QDAY famotidine 40 mg tablet 40 mg PO QDAY aspirin 81 mg Tablet,Delayed Release (Dr/Ec) 81 mg PO QDAY atorvastatin 40 mg tablet 40 mg PO QDAY albuterol sulfate 90 mcg/actuation HFA aerosol inhaler 1 puff inhalation PRN PRN Health Concerns: Post Hospitalization: new medications and changes needed to prevent readmission or further decline. Pt educated and given instructions on all concerns. Plan of Treatment: Continue with present treatment and follow up plan. Pt is to keep follow up appointment as instructed and take medications as ordered. Orders to Discharge Patient Discharge Orders: Transfer (Routine); Ordered 01/17/25 Ordered By: Chapito Hodges Follow ups/Referrals Follow ups/Referrals: Ana Latif [Primary Care Provider] - 3 days Instructions Stand Alone Forms: Find Help Web Site, Post Hospital Follow Up Care
[2025-01-17] MEDS: LASIX IVP ONE (04:11)
[2025-01-17] MEDS: MAG-OX TAB PO ONE (04:11)
--- NOTE | 2025-01-17 06:21 | RAD ---
EXAM:Portable chestHISTORY:Chest painCOMPARISON:10/31/2024FINDINGS:Patien t is rotated to the left. Heart size is upper limits normal. Diffuse severe chronic interstitial lung disease is present. The degree and distribution of these findings unchanged since the prior examination. There are some areas of ground-glass infiltrate also unchanged. There are no alveolar infiltrates or areas of consolidation identified. With the degree of chronic change present a superimposed acute process such as interstitial edema, acute pneumonitis, or atypical pneumonia would be difficult to exclude. No pleural effusions are identified. Bony thorax is unremarkable.IMPRESSION:Redemonstrated is severe diffuse chronic interstitial lung disease with some scattered areas of ground-glass infiltrates unchanged from multiple prior examinations. The degree of chronic change present is such that the evaluation for superimposed acute pneumonitis atypical pneumonia or edema would be difficult.THIS IS AN ELECTRONICALLY VERIFIED FINAL REPORT01/17/2025 6:17 AM - Electronically signed by Ko Michael MD
[2025-01-17] MEDS ORDERED: MORPHINE SULFATE INJ 2 MG INJ IVP PRN (09:11)
[2025-01-17] MEDS ORDERED: NITROSTAT SL PRN (09:11)
[2025-01-17] MEDS ORDERED: ASPIRIN PO SCH (09:11)
--- NOTE | 2025-01-17 09:24 | EKG ---
Test Reason : chest pain Blood Pressure : */* mmHG Vent. Rate : 81 BPM Atrial Rate : 81 BPM P-R Int : 190 ms QRS Dur : 110 ms QT Int : 412 ms P-R-T Axes : 63 -21 -25 degrees QTc Int : 478 ms Sinus rhythm with occasional premature ventricular complexes Possible Anterior infarct , age undetermined Abnormal ECG When compared with ECG of 17-JAN-2025 02:54, No significant change was found Confirmed by Shade Amezquita MD ([id number]) on 01/18/2025 6:25:59 AM Referred By: Confirmed By: Shade Amezquita MD
[2025-01-17] MEDS: BENTYL CAP 10 MG PO SCH (10:01)
[2025-01-17] MEDS: FLOMAX PO SCH (10:01)
[2025-01-17] MEDS: LIPITOR TAB 40 MG PO SCH (10:02)
[2025-01-17] MEDS: ELIQUIS PO SCH (10:02)
[2025-01-17] MEDS: PEPCID TAB 40 MG PO SCH (10:02)
[2025-01-17] MEDS: LASIX IVP SCH (10:03)
--- NOTE | 2025-01-17 10:28 | EKG ---
Test Reason : chest pain Blood Pressure : */* mmHG Vent. Rate : 76 BPM Atrial Rate : 76 BPM P-R Int : 190 ms QRS Dur : 112 ms QT Int : 418 ms P-R-T Axes : 62 -24 -17 degrees QTc Int : 470 ms Sinus rhythm with occasional premature ventricular complexes Anterior infarct (cited on or before 17-JAN-2025) Abnormal ECG When compared with ECG of 17-JAN-2025 09:01, (Unconfirmed) No significant change was found Confirmed by Shade Amezquita MD ([id number]) on 01/18/2025 6:25:51 AM Referred By: Confirmed By: Shaed Amezquita MD
[2025-01-17] MEDS: DUONEB 0.5 MG/3 MG (3 mL) NEB SCH (11:02)
[2025-01-17] MEDS ORDERED: HALLS COUGH DROPS MT PRN (11:23)
[2025-01-17] MEDS: ROBITUSSIN (PLAIN) PO PRN (14:38)
--- NOTE | 2025-01-17 16:25 | EKG ---
Test Reason : chest pain Blood Pressure : */* mmHG Vent. Rate : 95 BPM Atrial Rate : 95 BPM P-R Int : 192 ms QRS Dur : 112 ms QT Int : 382 ms P-R-T Axes : 42 -32 -14 degrees QTc Int : 480 ms Normal sinus rhythm Left axis deviation Cannot rule out Anterior infarct (cited on or before 17-JAN-2025) Abnormal ECG When compared with ECG of 17-JAN-2025 10:06, (Unconfirmed) premature ventricular complexes are no longer present Nonspecific T wave abnormality has replaced inverted T waves in Anterior leads Confirmed by Shade Amezquita MD ([id number]) on 01/18/2025 6:25:12 AM Referred By: Confirmed By: Shade Amezquita MD
--- NOTE | 2025-01-17 19:43 | DR.H&P ---
H&P History & Physical for Day of: H&P Date: 01/17/25 Chief Complaint Chief Complaint: Shortness of breath chest pain History of Present Illness History of Present Illness: Patient is a 73-year-old male past medical history of COPD, CHF, Hypertension, presenting with shortness of breath and chest pain that he reports has been progressively worsening over the past 2 to 3 days. He denies fevers, chills. Reports cough and some sputum production. Labs/imaging: WBC 7.7, hemoglobin 12.3, platelets 209, sodium 142, potassium 3.8, creatinine 1.15, glucose 92, troponin negative x 2, BNP 639, chest x-ray was obtained that revealed chronic interstitial lung disease with some scattered areas of groundglass infiltrates. Patient was admitted for CHF exacerbation, chest pain rule out, and COPD exacerbation. He was started on IV Lasix 40 mg daily. Scheduled bronchodilators. Supplemental oxygen. Respiratory therapy consulted. He is currently on 2 L nasal cannula supplemental oxygen. Wean/titrate as tolerated. Home medications were restarted. Otherwise continue with current treatment plan. Continue closely monitor and follow-up labs/imaging. Past Medical History Past Medical History: Anemia, Anxiety, CHF, COPD, Depression, Dyslipidemia, GERD, Hypertension and [place] Past Surgical History Surgical History: Other Family History Family Medical History: Diabetes Mellitus, Cancer and Hypertension Social History Does patient currently use any type of tobacco product: No Have you used tobacco products in the last 12 months: No Type of Tobacco Use: None Does any household member use tobacco: No Alcohol Use: None Medications Home Medications: Home Medications Medication Instructions Recorded Confirmed Type aspirin 81 mg tablet,delayed 81 mg PO QDAY 09/04/24 01/17/25 History release furosemide 20 mg tablet 20 mg PO QDAY 10/12/24 01/17/25 History famotidine 40 mg tablet 40 mg PO QDAY 10/15/24 01/17/25 History atorvastatin 40 mg tablet 40 mg PO QDAY 10/18/24 01/17/25 History albuterol sulfate 90 mcg/actuation 1 puff inhalation PRN PRN 01/17/25 01/17/25 History aerosol inhaler Allergies Allergies Allergy/AdvReac Type Severity Reaction Status Date / Time codeine Allergy Verified 12/26/24 14:36 lidocaine Allergy Verified 12/26/24 14:36 Penicillins Allergy Verified 12/26/24 14:36 procaine [From Novocain] Allergy Verified 12/26/24 14:36 Labs 01/17/25 03:05 01/17/25 03:05 Labs: Laboratory WBC 7.7 X10^3/uL (3.6-10.0) 01/17/25 03:05 RBC 4.17 X10^6/uL (4.7-6.0) L 01/17/25 03:05 Hgb 12.3 g/dL (13.5-18.0) L 01/17/25 03:05 Hct 36.4 % (42.0-54.0) L 01/17/25 03:05 MCV 87.3 fL (80.0-100.0) 01/17/25 03:05 MCH 29.4 pg (27.0-34.0) 01/17/25 03:05 MCHC 33.6 g/dL (33.0-35.0) 01/17/25 03:05 RDW 14.1 % (11.6-16.5) 01/17/25 03:05 Plt Count 209 X10^3/uL (150.0-450.0) 01/17/25 03:05 MPV 7.9 fL (7.4-11.0) 01/17/25 03:05 Neut % (Auto) 74.1 % (42.0-75.0) 01/17/25 03:05 Lymph % (Auto) 11.8 % (21.0-51.0) L 01/17/25 03:05 [place] % (Auto) 9.2 % (0.0-13.0) 01/17/25 03:05 Eos % (Auto) 4.0 % (0.9-2.9) H 01/17/25 03:05 Baso % (Auto) 0.9 % (0.2-1.0) 01/17/25 03:05 Neut # (Auto) 5.7 x10^3/uL (2.2-4.8) H 01/17/25 03:05 Lymph # (Auto) 0.9 X10^3/uL (1.3-2.9) L 01/17/25 03:05 [place] # (Auto) 0.7 x10^3/uL (0.3-0.8) 01/17/25 03:05 Eos # (Auto) 0.3 x10^3/uL (0.0-0.2) H 01/17/25 03:05 Baso # (Auto) 0.1 X10^3/uL (0.0-0.1) 01/17/25 03:05 Absolute Nucleated RBC 0.0 /100WBC 01/17/25 03:05 Sodium 142 mmol/L (136-145) 01/17/25 03:05 Corrected Sodium TNP 01/17/25 03:05 Potassium 3.8 mmol/L (3.5-5.1) 01/17/25 03:05 Chloride 105 mmol/L (98-107) 01/17/25 03:05 Carbon Dioxide 28.5 mmol/L (21-32) 01/17/25 03:05 BUN 19 mg/dL (7-18) H 01/17/25 03:05 Creatinine 1.15 mg/dL (0.70-1.30) 01/17/25 03:05 Est GFR (MDRD) Af Amer > 60 (>60) 01/17/25 03:05 Est GFR (MDRD) Non-Af > 60 (>60) 01/17/25 03:05 Glucose 92 mg/dL (65-99) 01/17/25 03:05 Calcium 8.7 mg/dL (8.5-10.1) 01/17/25 03:05 Corrected Calcium 9.3 mg/dL (8.5-10.1) 01/17/25 03:05 Magnesium 1.9 mg/dL (2.0-2.9) L 01/17/25 03:05 Total Bilirubin 0.60 mg/dL (0.2-1.0) 01/17/25 03:05 AST 27 Units/L (15-37) 01/17/25 03:05 ALT 36 Units/L (12-78) 01/17/25 03:05 Alkaline Phosphatase 136 Units/L (46-116) H 01/17/25 03:05 Creatine Kinase 76 Units/L (39-308) 01/17/25 03:05 Troponin I High Sens 37.5 ng/L (4.0-60.0) 01/17/25 05:35 B-Natriuretic Peptide 639 pg/mL (0-79) H 01/17/25 03:05 Total Protein 6.1 g/dL (6.4-8.2) L 01/17/25 03:05 Albumin 3.2 g/dL (3.4-5.0) L 01/17/25 03:05 Globulin 2.9 g/dL (2.5-4.5) 01/17/25 03:05 Albumin/Globulin Ratio 1.1 Ratio (1.1-2.1) 01/17/25 03:05 Review of Systems Constitutional: No Symptoms Reported Eyes: No Symptoms Reported ENT: No Symptoms Reported Respiratory: Cough and Shortness of Breath Cardiovascular: Chest Pain Gastrointestinal: No Symptoms Reported Genitourinary: No Symptoms Reported Musculoskeletal: No Symptoms Reported Skin: No Symptoms Reported Neurological: No Symptoms Reported Physical Exam Vital Signs: Vital Signs Temperature 98.2 F Pulse Rate [Left] 90 Pulse Rate 90 Pulse Rate 88 Pulse Rate 86 Pulse Rate 90 Pulse Rate 88 Pulse Rate 96 Pulse Rate 93 Pulse Rate 103 Pulse Rate 90 Pulse Rate 96 Pulse Rate 78 Pulse Rate 77 Pulse Rate 81 Pulse Rate 82 Pulse Rate 86 Pulse Rate 88 Pulse Rate 87 Pulse Rate 85 Pulse Rate 98 Pulse Rate 91 Pulse Rate 89 Pulse Rate 87 Pulse Rate 87 Pulse Rate 86 Pulse Rate 93 Pulse Rate 86 Pulse Rate 82 Pulse Rate 85 Pulse Rate 90 Respiratory Rate 26 Respiratory Rate 29 Respiratory Rate 23 Respiratory Rate 24 Respiratory Rate 25 Respiratory Rate 21 Respiratory Rate 19 Respiratory Rate 22 Respiratory Rate 24 Respiratory Rate 23 Respiratory Rate 23 Respiratory Rate 22 Respiratory Rate 23 Respiratory Rate 31 Respiratory Rate 33 Respiratory Rate 20 Respiratory Rate 20 Respiratory Rate 28 Respiratory Rate 31 Respiratory Rate 28 Respiratory Rate 34 Respiratory Rate 21 Blood Pressure [Right Arm] 141/82 Blood Pressure 141/82 Blood Pressure 138/77 Blood Pressure 124/71 Blood Pressure 141/84 Blood Pressure 129/83 Blood Pressure 139/75 Blood Pressure 138/79 Blood Pressure 144/82 Blood Pressure 145/79 Blood Pressure 122/63 O2 Sat by Pulse Oximetry 96 O2 Sat by Pulse Oximetry 96 O2 Sat by Pulse Oximetry 96 O2 Sat by Pulse Oximetry 97 O2 Sat by Pulse Oximetry 95 O2 Sat by Pulse Oximetry 95 O2 Sat by Pulse Oximetry 96 O2 Sat by Pulse Oximetry 97 O2 Sat by Pulse Oximetry 99 O2 Sat by Pulse Oximetry 98 O2 Sat by Pulse Oximetry 99 O2 Sat by Pulse Oximetry 98 O2 Sat by Pulse Oximetry 97 O2 Sat by Pulse Oximetry 98 O2 Sat by Pulse Oximetry 98 O2 Sat by Pulse Oximetry 99 O2 Sat by Pulse Oximetry 97 O2 Sat by Pulse Oximetry 96 O2 Sat by Pulse Oximetry 91 O2 Sat by Pulse Oximetry 92 O2 Sat by Pulse Oximetry 100 O2 Sat by Pulse Oximetry 88 O2 Sat by Pulse Oximetry 95 O2 Sat by Pulse Oximetry 93 O2 Sat by Pulse Oximetry 92 Oriented: Normal Eyes: Normal Ear: Normal Nose: Normal Throat: Normal Respiratory: Diminished Throughout Cardiovascular: Normal : Normal Auscultation: Bowel Sounds: Normal Palpation: Normal Tenderness: Normal Skin: Normal Musculoskeletal: Normal Psychiatric: Normal Mood Description: Calm and Appropriate Affect: Normal Speech Pattern: Clear and Appropriate Assessment/Plan (1) Acute exacerbation of CHF (congestive heart failure): Qualifiers: Heart failure type: unspecified Qualified Code(s): I50.9 - Heart failure, unspecified Status: Acute Plan: IV Lasix daily. Continue to monitor. (2) COPD exacerbation: Status: Acute Plan: Respiratory therapy consulted, wean/titrate supplemental oxygen as tolerated. Scheduled bronchodilators. Do not believe antibiotics warranted at this time. (3) Chest pain, rule out acute myocardial infarction: Status: Acute Plan: Symptoms significantly improved. Troponin negative x 2. Continue t o monitor. Review H&P Reviewed: Yes Patient was examined?: Yes
--- NOTE | 2025-01-17 20:59 | EKG ---
Test Reason : shoulder pain that radiates to neck Blood Pressure : */* mmHG Vent. Rate : 95 BPM Atrial Rate : 95 BPM P-R Int : 176 ms QRS Dur : 98 ms QT Int : 402 ms P-R-T Axes : 42 -35 -13 degrees QTc Int : 505 ms Sinus rhythm with occasional premature ventricular complexes Left axis deviation Abnormal ECG When compared with ECG of 17-JAN-2025 16:02, (Unconfirmed) premature ventricular complexes are now present ST now depressed in Anterior leads Confirmed by Shade Amezquita MD ([id number]) on 01/18/2025 6:24:36 AM Referred By: Confirmed By: Shade Amezquita MD
[2025-01-17] MEDS: TESSALON PERLES PO PRN (21:07)
[2025-01-18 05:20] LABS: BASOPHILS # (AUTO) 0.1 X10^3/uL (0.0-0.1); BASOPHILS % (AUTO) 0.7 % (0.2-1.0); EOSINOPHILS # (AUTO) 0.4 x10^3/uL (0.0-0.2); EOSINOPHILS % (AUTO) 4.4 % (0.9-2.9); HEMATOCRIT 36.3 % (42.0-54.0); HEMOGLOBIN 12.3 g/dL (13.5-18.0); LYMPHOCYTES # (AUTO) 0.7 X10^3/uL (1.3-2.9); LYMPHOCYTES % (AUTO) 8.6 % (21.0-51.0); MEAN CORPUSCULAR HEMOGLOBIN 29.6 pg (27.0-34.0); MEAN CORPUSCULAR HGB CONC 33.9 g/dL (33.0-35.0); MEAN CORPUSCULAR VOLUME 87.3 fL (80.0-100.0); MEAN PLATELET VOLUME 8.2 fL (7.4-11.0); MONOCYTES # (AUTO) 0.7 x10^3/uL (0.3-0.8); MONOCYTES % (AUTO) 9.1 % (0.0-13.0); NEUTROPHILS # (AUTO) 6.2 x10^3/uL (2.2-4.8); NEUTROPHILS % (AUTO) 77.2 % (42.0-75.0); PLATELET COUNT 206 X10^3/uL (150.0-450.0); RED BLOOD COUNT 4.16 X10^6/uL (4.7-6.0); RED CELL DISTRIBUTION WIDTH 14.2 % (11.6-16.5)
[2025-01-18 05:31] LABS: ALANINE AMINOTRANSFERASE 30 Units/L (12-78); ALBUMIN 3.1 g/dL (3.4-5.0); ALKALINE PHOSPHATASE 127 Units/L (46-116); ASPARTATE AMINO TRANSFERASE 23 Units/L (15-37); BLOOD UREA NITROGEN 16 mg/dL (7-18); CALCIUM 8.5 mg/dL (8.5-10.1); CARBON DIOXIDE 31.4 mmol/L (21-32); CHLORIDE 102 mmol/L (98-107); CHOL/HDL RATIO 1.7 (0.0-5.0); CHOLESTEROL 81 mg/dL (0-200); COR CA(FOR HYPOALB) 9.2 mg/dL (8.5-10.1); CREATININE 1.12 mg/dL (0.70-1.30); GLUCOSE 98 mg/dL (65-99); HDL CHOLESTEROL 47 mg/dL (40-60); MAGNESIUM 1.9 mg/dL (2.0-2.9); POTASSIUM 3.5 mmol/L (3.5-5.1); SODIUM 140 mmol/L (136-145); TOTAL PROTEIN 5.9 g/dL (6.4-8.2); TRIGLYCERIDES 31 mg/dL (0-150); eGFR NON BLACK RACES > 60 (>60)
[2025-01-18] MEDS ORDERED: CONSULT PHARMACY - POTASSIUM & MAGNESIUM XX SCH (06:00)
[2025-01-18] MEDS: K-DUR TAB 20 MEQ PO SCH (08:38)
[2025-01-18] MEDS: MAG-OX TAB PO SCH (08:39)
[2025-01-18] MEDS: ASPIRIN EC 81 MG PO SCH (08:40)
--- NOTE | 2025-01-18 09:44 | EKG ---
Test Reason : Chest pain Blood Pressure : */* mmHG Vent. Rate : 88 BPM Atrial Rate : 88 BPM P-R Int : 186 ms QRS Dur : 116 ms QT Int : 398 ms P-R-T Axes : 55 -31 -3 degrees QTc Int : 481 ms Sinus rhythm with sinus arrhythmia with occasional premature ventricular complexes Left axis deviation Cannot rule out Anterior infarct , age undetermined Abnormal ECG When compared with ECG of 17-JAN-2025 20:41, No significant change was found Confirmed by Shade Amezquita MD ([id number]) on 01/18/2025 8:02:46 PM Referred By: Confirmed By: Shade Amezquita MD
[2025-01-18] MEDS: SOLU-Medrol 40 MG VIAL IVP SCH (11:50)
[2025-01-18] MEDS: PROTONIX INJ 40 MG VIAL IVP SCH (11:51)
--- NOTE | 2025-01-18 12:10 | DR.H&P ---
H&P History & Physical for Day of: H&P Date: 01/17/25 Chief Complaint Chief Complaint: CP, SOB History of Present Illness History of Present Illness: PT IS 74 WM, ER ADMISSION AFTER PRESENTING WITH CO CHEST PAIN AND SOB. PT HAS CHRONIC RESP FAILURE, ON CONTINUOUS SUPPLEMENTAL O2, UNDER THE CARE OF DR TURNER. PT HAS BEEN SEEN BY DR STOVER FOR CARDIOLOGY WORK UP. PT HAS HX OF VALVE DISEASE, STABLE, AND LAST CATH ~1 YEAR AGO WITHOUT INTERVENTION REQUIRED. PT REPORTS INCREASE MUCOUS PRODUCTION AND INCREASED LEG/ANKLE SWELLING. Past Medical History Past Medical History: Anemia, Anxiety, CHF, COPD, Depression, Dyslipidemia, GERD, Hypertension and CA Past Surgical History Surgical History: No History Family History Family Medical History: Diabetes Mellitus, Cancer and Hypertension Social History Does patient currently use any type of tobacco product: No Have you used tobacco products in the last 12 months: No Type of Tobacco Use: None Does any household member use tobacco: No Alcohol Use: None Drug Use: None Medications Home Medications: Home Medications Medication Instructions Recorded Confirmed Type aspirin 81 mg tablet,delayed 81 mg PO QDAY 09/04/24 01/17/25 History release furosemide 20 mg tablet 20 mg PO QDAY 10/12/24 01/17/25 History famotidine 40 mg tablet 40 mg PO QDAY 10/15/24 01/17/25 History atorvastatin 40 mg tablet 40 mg PO QDAY 10/18/24 01/17/25 History albuterol sulfate 90 mcg/actuation 1 puff inhalation PRN PRN 01/17/25 01/17/25 History aerosol inhaler Allergies Allergies Allergy/AdvReac Type Severity Reaction Status Date / Time codeine Allergy Verified 12/26/24 14:36 lidocaine Allergy Verified 12/26/24 14:36 Penicillins Allergy Verified 12/26/24 14:36 procaine [From Novocain] Allergy Verified 12/26/24 14:36 Labs 01/18/25 04:24 01/18/25 04:24 Labs: Laboratory WBC 8.0 X10^3/uL (3.6-10.0) 01/18/25 04:24 RBC 4.16 X10^6/uL (4.7-6.0) L 01/18/25 04:24 Hgb 12.3 g/dL (13.5-18.0) L 01/18/25 04:24 Hct 36.3 % (42.0-54.0) L 01/18/25 04:24 MCV 87.3 fL (80.0-100.0) 01/18/25 04:24 MCH 29.6 pg (27.0-34.0) 01/18/25 04:24 MCHC 33.9 g/dL (33.0-35.0) 01/18/25 04:24 RDW 14.2 % (11.6-16.5) 01/18/25 04:24 Plt Count 206 X10^3/uL (150.0-450.0) 01/18/25 04:24 MPV 8.2 fL (7.4-11.0) 01/18/25 04:24 Neut % (Auto) 77.2 % (42.0-75.0) H 01/18/25 04:24 Lymph % (Auto) 8.6 % (21.0-51.0) L 01/18/25 04:24 [place] % (Auto) 9.1 % (0.0-13.0) 01/18/25 04:24 Eos % (Auto) 4.4 % (0.9-2.9) H 01/18/25 04:24 Baso % (Auto) 0.7 % (0.2-1.0) 01/18/25 04:24 Neut # (Auto) 6.2 x10^3/uL (2.2-4.8) H 01/18/25 04:24 Lymph # (Auto) 0.7 X10^3/uL (1.3-2.9) L 01/18/25 04:24 [place] # (Auto) 0.7 x10^3/uL (0.3-0.8) 01/18/25 04:24 Eos # (Auto) 0.4 x10^3/uL (0.0-0.2) H 01/18/25 04:24 Baso # (Auto) 0.1 X10^3/uL (0.0-0.1) 01/18/25 04:24 Absolute Nucleated RBC 0.0 /100WBC 01/18/25 04:24 Sodium 140 mmol/L (136-145) 01/18/25 04:24 Corrected Sodium TNP 01/18/25 04:24 Potassium 3.5 mmol/L (3.5-5.1) 01/18/25 04:24 Chloride 102 mmol/L (98-107) 01/18/25 04:24 Carbon Dioxide 31.4 mmol/L (21-32) 01/18/25 04:24 BUN 16 mg/dL (7-18) 01/18/25 04:24 Creatinine 1.12 mg/dL (0.70-1.30) 01/18/25 04:24 Est GFR (MDRD) Af Amer > 60 (>60) 01/18/25 04:24 Est GFR (MDRD) Non-Af > 60 (>60) 01/18/25 04:24 Glucose 98 mg/dL (65-99) 01/18/25 04:24 Calcium 8.5 mg/dL (8.5-10.1) 01/18/25 04:24 Corrected Calcium 9.2 mg/dL (8.5-10.1) 01/18/25 04:24 Magnesium 1.9 mg/dL (2.0-2.9) L 01/18/25 04:24 Total Bilirubin 0.70 mg/dL (0.2-1.0) 01/18/25 04:24 AST 23 Units/L (15-37) 01/18/25 04:24 ALT 30 Units/L (12-78) 01/18/25 04:24 Alkaline Phosphatase 127 Units/L (46-116) H 01/18/25 04:24 Creatine Kinase 76 Units/L (39-308) 01/17/25 03:05 Troponin I High Sens 34.1 ng/L (4.0-60.0) 01/17/25 22:06 B-Natriuretic Peptide 639 pg/mL (0-79) H 01/17/25 03:05 Total Protein 5.9 g/dL (6.4-8.2) L 01/18/25 04:24 Albumin 3.1 g/dL (3.4-5.0) L 01/18/25 04:24 Globulin 2.8 g/dL (2.5-4.5) 01/18/25 04:24 Albumin/Globulin Ratio 1.1 Ratio (1.1-2.1) 01/18/25 04:24 Triglycerides 31 mg/dL (0-150) 01/18/25 04:24 Cholesterol 81 mg/dL (0-200) 01/18/25 04:24 LDL Cholesterol, Calc 28 mg/dL (0-100) 01/18/25 04:24 HDL Cholesterol 47 mg/dL (40-60) 01/18/25 04:24 Cholesterol/HDL Ratio 1.7 (0.0-5.0) 01/18/25 04:24 Review of Systems Constitutional: No Symptoms Reported Eyes: No Symptoms Reported ENT: No Symptoms Reported Respiratory: Cough and Shortness of Breath Cardiovascular: Chest Pain Gastrointestinal: No Symptoms Reported Genitourinary: No Symptoms Reported Musculoskeletal: No Symptoms Reported Skin: No Symptoms Reported Neurological: No Symptoms Reported Physical Exam Vital Signs: Vital Signs Temperature 98.1 F Pulse Rate [Brachial] 88 Pulse Rate 90 Respiratory Rate 20 Blood Pressure [Left Arm] 139/75 O2 Sat by Pulse Oximetry 96 O2 Sat by Pulse Oximetry 96 Oriented: Normal Eyes: Normal Ear: Normal Nose: Normal Throat: Normal Respiratory: Diminished Throughout Cardiovascular: Normal and Murmur : Normal Auscultation: Bowel Sounds: Normal Tenderness: Normal Skin: Decreased Turgur Musculoskeletal: Back:Lumbar Psychiatric: Depression Mood Description: Depressed Affect: Normal Speech Pattern: Clear and Appropriate Assessment/Plan (1) Acute exacerbation of CHF (congestive heart failure): Qualifiers: Heart failure type: unspecified Qualified Code(s): I50.9 - Heart failure, unspecified Status: Acute Plan: ADMIT, IV SOLU MEDROL, IV ATBX SPUTUM CULTURE SUPPLEMENTAL O2, RESP THERAPY CXR ON ADMISSION ABG ON ADMISSION, SERIAL CE AND EKG BP CONTROL, VERIFY HOME MEDICATIONS AND RESUME (2) COPD exacerbation: Status: Acute (3) Chest pain, rule out acute myocardial infarction: Status: Acute
[2025-01-18] MEDS ORDERED: SALINE 3% 15 ML NEB TX ONE (19:50)
[2025-01-19 06:14] LABS: BASOPHILS % (AUTO) 0.4 % (0.2-1.0); HEMATOCRIT 36.8 % (42.0-54.0); HEMOGLOBIN 12.5 g/dL (13.5-18.0); LYMPHOCYTES # (AUTO) 0.3 X10^3/uL (1.3-2.9); LYMPHOCYTES % (AUTO) 4.3 % (21.0-51.0); MEAN CORPUSCULAR HEMOGLOBIN 29.4 pg (27.0-34.0); MEAN CORPUSCULAR VOLUME 86.5 fL (80.0-100.0); MEAN PLATELET VOLUME 8.3 fL (7.4-11.0); MONOCYTES # (AUTO) 0.1 x10^3/uL (0.3-0.8); MONOCYTES % (AUTO) 1.5 % (0.0-13.0); NEUTROPHILS # (AUTO) 6.8 x10^3/uL (2.2-4.8); NEUTROPHILS % (AUTO) 93.8 % (42.0-75.0); PLATELET COUNT 208 X10^3/uL (150.0-450.0); RED BLOOD COUNT 4.25 X10^6/uL (4.7-6.0); RED CELL DISTRIBUTION WIDTH 14.1 % (11.6-16.5); WHITE BLOOD COUNT 7.3 X10^3/uL (3.6-10.0)
[2025-01-19 06:28] LABS: ALANINE AMINOTRANSFERASE 24 Units/L (12-78); ALBUMIN 3.1 g/dL (3.4-5.0); ALKALINE PHOSPHATASE 123 Units/L (46-116); ASPARTATE AMINO TRANSFERASE 19 Units/L (15-37); BLOOD UREA NITROGEN 17 mg/dL (7-18); CARBON DIOXIDE 28.9 mmol/L (21-32); CHLORIDE 102 mmol/L (98-107); COR CA(FOR HYPOALB) 9.7 mg/dL (8.5-10.1); COR NA(FOR HYPERGLY) 140 mmol/L (136-145); CREATININE 0.87 mg/dL (0.70-1.30); GLUCOSE 146 mg/dL (65-99); MAGNESIUM 2.2 mg/dL (2.0-2.9); POTASSIUM 4.3 mmol/L (3.5-5.1); SODIUM 139 mmol/L (136-145); TOTAL PROTEIN 6.2 g/dL (6.4-8.2); eGFR NON BLACK RACES > 60 (>60)
[2025-01-19 06:58] LABS: PLATELET MORPHOLOGY COMMENT NORMAL (NORMAL)
[2025-01-19] MEDS: ROCEPHIN VIAL 1 GRAM 1 G in NS 100 ML IV 100 ML IV SCH (08:25)
--- NOTE | 2025-01-19 09:03 | RAD ---
EXAM: CHEST 2 VIEWS HISTORY: chf, pneumonia, copd; COMPARISON: January 17, 2025 TECHNIQUE: Frontal and lateral views of the chest were submitted for interpretation. FINDINGS: The cardiomediastinal silhouette is again seen to be enlarged. Lungs show likely chronic interstiti al fibrosis. Visualized bony structures are within normal limits. IMPRESSION: Likely chronic interstitial fibrosis. THIS IS AN ELECTRONICALLY VERIFIED FINAL REPORT 01/19/2025 9:00 AM - Electronically signed by Aramis Love MD
[2025-01-19 11:47] VITALS: BP 125/66; PULSE 95; RESP 20; TEMP 98.1; O2SAT 97
== END 2025-01-19 13:15 | disposition home or self-care (01) ==
LOC: ER 02:46 → MED/SURG 02:46
PROVIDERS: ADMIT Family Medicine; ATTEND Family Medicine
DX: K21.9 Gastro-esophageal reflux disease without esophagitis; K44.9 Diaphragmatic hernia without obstruction or gangrene; R07.89 Other chest pain; R06.02 Shortness of breath; Z66 Do not resuscitate; I11.0 Hypertensive heart disease with heart failure; E78.5 Hyperlipidemia, unspecified; J84.10 Pulmonary fibrosis, unspecified; R94.31 Abnormal electrocardiogram [ECG] [EKG]; R26.89 Other abnormalities of gait and mobility; J44.1 Chronic obstructive pulmonary disease with (acute) exacerbation; E83.42 Hypomagnesemia; I50.9 Heart failure, unspecified; Z58.89 Other problems related to physical environment